=== PATIENT | male | born 1945 | race Caucasian/White ===

== ENCOUNTER 2016-05-18 16:17 | Inpatient (IN) | payer MEDICARE, OTHER ==
[~2016-05-18] VITALS: Ht 175.3 cm; Wt 121.9 kg
[2016-05-18] VITALS (7 sets, daily range): BP systolic 77–122; BP diastolic 42–56; PULSE 61–82; RESP 18–24; TEMP 98.9–99.2; O2SAT 91–96
[~2016-05-18 16:17] MED LIST: ADVAI100I PO; ALBU6.7H INH; ALFU10TA2 PO; ASPI1TAB7 PO; COZA50TA PO; DICL1GEL; DIPH50TA PO; FAMO20 PO; FIBE625T10 PO; FURO10S PO; GABA600T PO; MEDR4PAK3 PO; METO25 PO; MULT1TAB PO; NORC7.5T PO; PANT20 PO; SIMV20 PO; STOO240C PO; ZOLP10TA3 PO
[2016-05-18] MEDS ORDERED: SODIUM CHLOR 0.9% 1000 ML INJ 1,000 ML IV ONE ×2 (17:45→18:45)
[2016-05-18 17:47] LABS: AUTOMATED NEUTROPHIL # 14.6 TH/MM3 (1.8-7.7); BASOPHIL # 0.1 TH/MM3 (0-0.2); BASOPHIL % 0.4 % (0.0-2.0); LYMPH % 3.6 % (9.0-44.0); LYMPHOCYTE # 0.6 TH/MM3 (1.0-4.8); MEAN CELL VOLUME 88.1 FL (80.0-100.0); MEAN CORPUSCULAR HEMOGLOBIN 29.8 PG (27.0-34.0); MEAN CORPUSCULAR HGB CONC 33.9 % (32.0-36.0); MONO % 6.8 % (0.0-8.0); NEUT % 89.2 % (16.0-70.0); PLATELET COUNT 232 TH/MM3 (150-450); RED BLOOD COUNT 3.97 MIL/MM3 (4.50-5.90); RED CELL DISTRIBUTION WIDTH 15.8 % (11.6-17.2); WHITE BLOOD COUNT 16.3 TH/MM3 (4.0-11.0)
[2016-05-18 17:48] LABS: HEMO FLAGS AUTO DIFF
--- NOTE | 2016-05-18 17:53 | PD ---
HPI Chief Complaint: Chest Pain Time Seen by Provider: 17:35 Travel History International Travel<30 days: No Contact w/Intl Traveler<30days: No Traveled to known affect area: No History of Present Illness HPI This patient complains of lightheadedness and chills. He is not sure if he had fever. He had generalized weakness. He did have some brief spells of chest pain earlier that resolved. They were fairly atypical and only lasted a few seconds and resolved. He does have history of aortic valve replacement from rheumatic fever and bypass grafting. He is currently chest pain-free. He arrives looking critically ill with a systolic blood pressure of 77. Symptoms. Are severe. Duration one day. No alleviating factors. Medications today but did not take any sublingual nitroglycerin. No syncope. PFSH Past Medical History Hx Anticoagulant Therapy: Yes (ASA) Cardiac Catheterization: Yes Cardiovascular Problems: Yes (DOUBLE BYPASS) High Cholesterol: Yes Congestive Heart Failure: Yes COPD: Yes Coronary Artery Disease: Yes Diabetes: Yes Patient Takes Glucophage: No Diminished Hearing: Yes ([employer] [place] [employer] [place]) Gastrointestinal Disorders: Yes (CONSTIPATION ) GERD: Yes Hypertension: Yes Sleep Apnea: Yes (CPAP) Tetanus Vaccination: Unknown Influenza Vaccination: Yes Past Surgical History Cardiac Surgery: Yes (valve replacement) Coronary Artery Bypass Graft: Yes (double bypass 2011 ) Social History Alcohol Use: No Tobacco Use: No (QUIT 2011 ) Substance Use: No Allergies-Medications (Allergen,Severity, Reaction): Coded Allergies: Lisinopril (Verified Allergy, Unknown, 05/18/16) angioedema Reported Meds & Prescriptions Reported Meds & Active Scripts Active Reported Colace (Docusate Sodium) 100 Mg Cap 100 Mg PO HS Fiber (Calcium Polycarbophil) 625 Mg Tab 625 Mg PO HS PRN [place] ([place]) 450 Mg Cap 450 Mg PO DAILY [Immune Extra] 1 Tab PO DAILY Cranberry (Cranberry (Vaccinium Macrocarpon)) 500 Mg Cap 500 Mg PO DAILY B Complex (B-Complex W/ Folic Acid) 1 Tab 1 Tab PO DAILY Vitamin D3 (Cholecalciferol) 5,000 Unit Cap 5,000 Units PO DAILY Centrum Silver Adult 50+ (Multiple Vitamins W/ Minerals) 1 Tab Tab 1 Tab PO DAILY Aspirin EC (Aspirin) 81 Mg Tabdr 81 Mg PO HS Gabapentin 600 Mg Tab 600 Mg PO TID Ambien (Zolpidem Tartrate) 10 Mg Tab 10 Mg PO HS Amlodipine (Amlodipine Besylate) 5 Mg Tab 5 Mg PO DAILY Furosemide 20 Mg Tab 20 Mg PO DAILY Pantoprazole (Pantoprazole Sodium) 20 Mg Tab 20 Mg PO DAILY Metoprolol Tartrate 25 Mg Tab 25 Mg PO BID Alfuzosin ER 24 HR 10 Mg Tab 10 Mg PO DAILY Losartan (Losartan Potassium) 50 Mg Tab 50 Mg PO DAILY Advair Diskus Inh (Fluticasone-Salmeterol Inh) 100-50 Mcg/Blist Aer 1 Puff INH BID Rinse mouth after use. Atorvastatin (Atorvastatin Calcium) 40 Mg Tab 40 Mg PO HS Review of Systems General / Constitutional: Positive: Fever, Chills Eyes: No: Visual changes HENT: Positive: Lightheadedness, No: Headaches Cardiovascular: Positive: Chest Pain or Discomfort Respiratory: No: Shortness of Breath Gastrointestinal: No: Abdominal Pain Genitourinary: No: Dysuria Musculoskeletal: Positive: Weakness, No: Pain Skin: No Rash Neurologic: Positive: Weakness, Dizziness Psychiatric: No: Depression Endocrine: No: Polydipsia Hematologic/Lymphatic: No: Easy Bruising Physical Exam Narrative GENERAL: Well-nourished, well-developed patient with hypotension and presyncopal symptoms. SKIN: Warm and dry. HEAD: Atraumatic. Normocephalic. EYES: Pupils equal and round. No scleral icterus. No injection or drainage. ENT: No nasal bleeding or discharge. Mucous membranes pink and moist. NECK: Trachea midline. No JVD. CARDIOVASCULAR: Regular rate and rhythm. No murmur appreciated. RESPIRATORY: No accessory muscle use. Clear to auscultation. Breath sounds equal bilaterally. GASTROINTESTINAL: Abdomen soft, non-tender, nondistended. Hepatic and splenic margins not palpable. MUSCULOSKELETAL: No obvious deformities. No clubbing. No cyanosis. No edema. NEUROLOGICAL: Awake and alert. No obvious cranial nerve deficits. Motor grossly within normal limits. Normal speech. PSYCHIATRIC: Appropriate mood and affect; insight and judgment normal. Data Data Last Documented VS Vital Signs Date Time Temp Pulse Resp B/P Pulse Ox O2 Delivery O2 Flow Rate FiO2 05/18/16 18:39 67 18 108/47 93 Nasal Cannula 3 05/18/16 17:12 99.2 Orders Electrocardiogram (05/18/16 16:28) Complete Blood Count With Diff (05/18/16 16:28) Basic Metabolic Panel (Bmp) (05/18/16 16:28) Ckmb (Isoenzyme) Profile (05/18/16 16:28) Troponin I (05/18/16 16:28) Electrocardiogram (05/18/16 ) Sodium Chlor 0.9% 1000 Ml Inj (Ns 1000 M (05/18/16 17:45) Chest, Single Ap (05/18/16 ) Blood Culture (05/18/16 17:35) Lactic Acid (05/18/16 17:35) Iv Access Insert/Monitor (05/18/16 17:36) Iv Access Insert/Monitor (05/18/16 17:36) CKMB (05/18/16 17:25) CKMB% (05/18/16 17:25) Sodium Chlor 0.9% 1000 Ml Inj (Ns 1000 M (05/18/16 18:45) Labs Laboratory Tests Test 05/18/16 17:25 White Blood Count 16.3 TH/MM3 Red Blood Count 3.97 MIL/MM3 Hemoglobin 11.8 GM/DL Hematocrit 35.0 % Mean Corpuscular Volume 88.1 FL Mean Corpuscular Hemoglobin 29.8 PG Mean Corpuscular Hemoglobin 33.9 % Concent Red Cell Distribution Width 15.8 % Platelet Count 232 TH/MM3 Mean Platelet Volume 9.2 FL Neutrophils (%) (Auto) 89.2 % Lymphocytes (%) (Auto) 3.6 % Monocytes (%) (Auto) 6.8 % Eosinophils (%) (Auto) 0.0 % Basophils (%) (Auto) 0.4 % Neutrophils # (Auto) 14.6 TH/MM3 Lymphocytes # (Auto) 0.6 TH/MM3 Monocytes # (Auto) 1.1 TH/MM3 Eosinophils # (Auto) 0.0 TH/MM3 Basophils # (Auto) 0.1 TH/MM3 CBC Comment AUTO DIFF Differential Comment AUTO DIFF CONFIRMED Sodium Level 139 MEQ/L Potassium Level 5.5 MEQ/L Chloride Level 103 MEQ/L Carbon Dioxide Level 28.7 MEQ/L Anion Gap 7 MEQ/L Blood Urea Nitrogen 24 MG/DL Creatinine 1.96 MG/DL Estimat Glomerular Filtration 34 ML/MIN Rate Random Glucose 109 MG/DL Lactic Acid Level 2.0 mmol/L Calcium Level 8.9 MG/DL Total Creatine Kinase 175 U/L Creatine Kinase MB 0.8 NG/ML Troponin I 0.04 NG/ML MDM Medical Decision Making Medical Screen Exam Complete: Yes Emergency Medical Condition: Yes Medical Record Reviewed: Yes Differential Diagnosis Septic shock, overmedication, dehydration Narrative Course I have reviewed the patient's electronic medical record. 2 IVs placed I gave him 2L IV normal saline bolus 2 sets of blood cultures obtained CBC shows some leukocytosis Metabolic profile shows renal sufficient creatinine 1.96, potassium 5.5 CK is normal Troponin is normal I reviewed his chest x-ray which shows bilateral airspace disease but no effusion or pneumothorax Reviewed his EKG which shows sinus rhythm with no ST elevation. There is no ectopy. He does have some T-wave inversion in lateral leads Extended cardiac monitoring reveals sinus rhythm without ectopy On recheck the patient was clinically improved. He no longer appears critically ill. He will require hospitalization on telemetry given his presentation as well as his chest pain with known CAD/bypass grafting Case discussed with the [facility] hospitalist who will admit Critical Care Narrative Aggregate critical care time was 40 minutes. Time to perform other separately billable procedures was not included in the critical care time. My time did not include minutes spent treating any other patients simultaneously or on activities that did not directly contribute to the patient's treatment. The services I provided to this patient were to treat and/or prevent clinically significant deterioration that could result in: Septic shock, cardiopulmonary arrest, cardiac arrhythmia I provided critical care services requiring my management, as noted below: Chart data review, documentation time, medication orders and management, vital sign assessments/reviewing monitor data, ordering and reviewing lab tests, ordering and interpreting/reviewing x-rays and diagnostic studies, care of the patient and discussion of the patient with the admitting physicians. Diagnosis Primary Impression: Hypotension Qualified Code: I95.9 - Hypotension, unspecified hypotension type Additional Impressions: Chest pain in adult Pre-syncope Admitting Information Admitting Physician Requests: it Jay Jay Valerio MD May 18, 2016 17:53
[2016-05-18] MEDS ORDERED: ALFU10TA2 PO (18:06)
[2016-05-18] MEDS ORDERED: AMBI10TA PO (18:06)
[2016-05-18] MEDS ORDERED: B COTAB3 PO (18:06)
[2016-05-18] MEDS ORDERED: ASPI81TA11 PO (18:06)
[2016-05-18] MEDS ORDERED: ADVA100A INH (18:06)
[2016-05-18] MEDS ORDERED: SAW450CA2 PO (18:06)
[2016-05-18] MEDS ORDERED: PANT20TA2 PO (18:06)
[2016-05-18] MEDS ORDERED: AMLO5TAB2 PO (18:06)
[2016-05-18] MEDS ORDERED: [UNRECOGNIZED DRUG - OTHER] PO (18:06)
[2016-05-18] MEDS ORDERED: MULT1TAB PO (18:06)
[2016-05-18] MEDS ORDERED: ATOR40TA16 PO (18:06)
[2016-05-18] MEDS ORDERED: LOSA50TA PO (18:06)
[2016-05-18] MEDS ORDERED: CRAN500C2 PO (18:06)
[2016-05-18] MEDS ORDERED: CHOL5000 PO (18:06)
[2016-05-18] MEDS ORDERED: GABA600T PO (18:06)
[2016-05-18] MEDS ORDERED: METO25TA3 PO (18:06)
[2016-05-18] MEDS ORDERED: FURO20TA PO (18:06)
[2016-05-18 18:18] LABS: ANION GAP 7 MEQ/L (5-15); BICARBONATE 28.7 MEQ/L (21.0-32.0); BLOOD UREA NITROGEN 24 MG/DL (7-18); CHLORIDE 103 MEQ/L (98-107); CREATINE KINASE 175 U/L (39-308); GLOMERULAR FILTRATION RATE 34 ML/MIN (>89); POTASSIUM 5.5 MEQ/L (3.5-5.1); SODIUM (NA) 139 MEQ/L (136-145)
[2016-05-18 18:24] LABS: SCAN/DIFF AUTO DIFF CONFIRMED
[2016-05-18 18:30] LABS: CKMB 0.8 NG/ML (0.5-3.6)
[2016-05-18] MEDS ORDERED: COLA100C3 PO (18:30)
[2016-05-18] MEDS ORDERED: FIBE625T10 PO (18:30)
--- NOTE | 2016-05-18 18:55 | RADRPT ---
EXAM DATE/TIME: 05/18/2016 18:07 [facility] COMPARISON: No previous studies available for comparison. INDICATIONS : Chest pain. MEDICAL HISTORY : Cardiovascular disease. SURGICAL HISTORY : valve replacement with double bypass 2011 ENCOUNTER: Initial ACUITY: 3 days PAIN SCORE: 7/10 LOCATION: Bilateral upper chest FINDINGS: Heart size is enlarged. Postoperative median sternotomy. Hazy airspace disease present in the left nicolas ng with minimal right basilar opacity as well. No significant effusion. No pneumothorax. CONCLUSION: 1. Cardiomegaly with hazy left-sided air space disease in the lung. Differential diagnosis includes b ronchopneumonia or asymmetric edema. Getachew Perez MD on May 18, 2016 at 18:52 Board Certified Radiologist. This report was verified electronically.
[2016-05-18] MEDS ORDERED: SODIUM CHLORIDE 0.9% FLUSH 5 ML FLUSH FLUSH PRN (20:30)
[2016-05-18] MEDS ORDERED: NALOXONE HCL 0.4 MG/ML AMP IV PRN (20:30)
[2016-05-18] MEDS ORDERED: CALCIUM POLYCARBOPHIL 625 MG TAB PO PRN (20:45)
[2016-05-18] MEDS: SODIUM CHLORIDE 0.9% FLUSH 5 ML FLUSH FLUSH SCH (21:00)
[2016-05-18] MEDS: METOPROLOL TARTRATE 25 MG TAB PO SCH (21:00)
[2016-05-18] MEDS: SODIUM CHLOR 0.9% 1000 ML INJ 1,000 ML IV SCH ×2 (21:15→22:57)
[2016-05-18] MEDS: ASPIRIN EC 81 MG TABEC PO SCH (21:16)
[2016-05-18] MEDS: DOCUSATE SODIUM 100 MG CAP PO SCH (21:16)
[2016-05-18] MEDS: ATORVASTATIN 40 MG TAB PO SCH (21:16)
[2016-05-18] MEDS: AZITHROMYCIN INJ 500 MG in SODIUM CHLOR 0.9% 250 ML INJ 250 ML IV SCH ×2 (21:29→22:58)
[2016-05-18] MEDS: HEPARIN SODIUM - SQ 10,000 UNITS/ML VIAL SQ SCH (21:46)
[2016-05-18] MEDS: BUDESONIDE-FORMOTEROL 80/4.5 MCG INHALER INH SCH (22:00)
[2016-05-18] MEDS: cefTRIAXone INJ 1,000 MG in SODIUM CHLORIDE 0.9% INJ 100 ML IV SCH (22:57)
[2016-05-19] VITALS (10 sets, daily range): BP systolic 88–162; BP diastolic 50–72; PULSE 72–86; RESP 18–20; TEMP 96.8–99.9; O2SAT 92–98
[2016-05-19] MEDS: ZOLPIDEM TARTRATE 10 MG TAB PO SCH ×2 (01:13→22:49)
[2016-05-19 03:11] LABS: AUTOMATED NEUTROPHIL # 16.9 TH/MM3 (1.8-7.7); BASOPHIL % 0.2 % (0.0-2.0); EOSINOPHIL % 0.2 % (0.0-4.0); HEMATOCRIT 32.9 % (39.0-51.0); HEMO FLAGS DIFF FINAL; LYMPH % 6.8 % (9.0-44.0); LYMPHOCYTE # 1.3 TH/MM3 (1.0-4.8); MEAN CELL VOLUME 89.9 FL (80.0-100.0); MEAN CORPUSCULAR HEMOGLOBIN 29.1 PG (27.0-34.0); MEAN CORPUSCULAR HGB CONC 32.4 % (32.0-36.0); MONO % 7.3 % (0.0-8.0); NEUT % 85.5 % (16.0-70.0); PLATELET COUNT 184 TH/MM3 (150-450); RED BLOOD COUNT 3.66 MIL/MM3 (4.50-5.90); RED CELL DISTRIBUTION WIDTH 15.6 % (11.6-17.2); WHITE BLOOD COUNT 19.8 TH/MM3 (4.0-11.0)
[2016-05-19 03:38] LABS: BICARBONATE 27.9 MEQ/L (21.0-32.0)
[2016-05-19 03:39] LABS: POTASSIUM 4.8 MEQ/L (3.5-5.1)
[2016-05-19 03:57] LABS: CKMB 1.4 NG/ML (0.5-3.6)
[2016-05-19] MEDS ORDERED: SODIUM CHLOR 0.9% 1000 ML INJ 1,000 ML IV ONE (04:45)
--- NOTE | 2016-05-19 07:32 | MB ---
cc: JORDEN GRANT M.D. DATE OF CONSULTATION: 05/19/2016 REASON FOR CONSULTATION Chest pain and hypotension. HISTORY OF PRESENT ILLNESS Mr. Gudion is a 70-year-old white gentleman well-known to me with a history of coronary artery disease, aortic valve disease, status post coronary artery bypass grafting x2 vessels with aortic valve replacement with a #21 [facility] bioprosthesis on August 03, 2011. He has been doing well from a cardiac standpoint. He has had no recent chest discomfort. I saw him about a week ago and he was concerned about weight gain and we discussed his diabetes. His blood pressure was on the low side systolic around 98 as I recall and I had reduced his amlodipine from 5 to 2.5 mg a day. Since then he was doing okay until yesterday. He said he woke from sleep yesterday morning and felt chills and generally ill-feeling. He has been taking his medication as directed. He came to the emergency room and was found to be hypotensive with a blood pressure in the high 70s. He was given intravenous fluid resuscitation and did well and recovered quickly. His white count is elevated and he has had some infiltrates on his x-ray and he is now on antibiotics and awaiting blood culture results. He did complain of some left-sided intermittent chest discomfort which has resolved. His cardiac enzymes thus far are unremarkable. PAST MEDICAL HISTORY 1. Hypertension. 2. Hypercholesterolemia. 3. Rheumatic fever. 4. Heart murmur. 5. Frequent snoring. 6. Diabetes mellitus. Denies history of myocardial infarction, heart failure, stroke, TIA, thyroid, liver or kidney disease. PAST SURGICAL HISTORY 1. CABG x2 vessels with AVR, [facility] 21 bioprosthesis, July 2011. 2. Cataract left eye 2012. ALLERGIES LISINOPRIL CAUSED ANGIOEDEMA. MEDICATIONS Medications prior to admission: 1. Amlodipine 2.5 mg daily. 2. Atorvastatin 40 mg daily. 3. Metoprolol tartrate 25 mg b.i.d. 4. Cozaar 50 mg daily. 5. Aspirin 81 mg daily. 6. Furosemide 20 mg daily. 7. Famotidine 20 mg b.i.d. FAMILY HISTORY Mother age 80 with stomach cancer. Father around age 80 with peptic ulcers. A brother is from heart disease age 56, and one is alive and well in his 70s. SOCIAL HISTORY The patient denies tobacco use at this time. He was a cigarette smoker, smoked 2-3 packs a day for 45 years, quit in July 2011. Denies any alcohol intake or any illicit drug use. He lives alone and is REVIEW OF SYSTEMS Denies any palpitations, lightheadedness or syncope. He has had some chills and night sweats over the past 24 hours. He denies any exertional chest discomfort. Denies any shortness of breath, orthopnea or PND type symptoms. Denies lower extremity edema. Denies nausea, vomiting or diarrhea. Denies bleeding or clotting disorders. Except for that mentioned in the HPI his complete 12-point review of systems is otherwise negative. PHYSICAL EXAMINATION GENERAL: A 70-year-old obese white male lying in bed in no distress. VITAL SIGNS: Blood pressure 134/61 mmHg in his left upper extremity, 90/65 in his right upper extremity. We had noted this differential blood pressure in his left and right arm in the office last week as well. HEENT: Pupils are equal, round and react to light. Sclera anicteric. Extraocular movements intact. NECK: The neck is supple. There is no adenopathy. No jugular venous tension at 45 degrees. Carotid upstrokes normal. No bruits. Thyroid exam normal. LUNGS: The lungs are clear. HEART: PMI is not displaced. S1, S2 normal. There is a grade 1/6 systolic murmur at the left sternal border and base. No diastolic murmur, gallops or rubs. ABDOMEN: Obese. Bowel sounds present. Soft, nontender. No hepatosplenomegaly, masses or bruits. EXTREMITIES: No cyanosis, clubbing or edema. Pulses are intact. Perfusion is adequate in the upper and lower extremities. EKG EKG from yesterday evening shows a sinus rhythm with lateral T-wave abnormalities, abnormal EKG. Compared to EKG from my office there is no change. TELEMETRY Telemetry monitoring at this time shows sinus rhythm. IMAGING Chest x-ray from yesterday: Cardiomegaly with hazy left-sided airspace disease in the lung. LABORATORY CBC: White count 19.8 this morning with a hemoglobin of 10.7, hematocrit 32.9, platelet count 184,000. There is 85.5% neutrophils. Chemistries: Sodium 141, potassium 4.8, chloride 107, CO2 27.9, BUN 28, creatinine 1.89 down from 1.96 on admission yesterday after intravenous fluids. CPK 359 with a CPK-MB% of 0.4 and a troponin-I of 0.05 on the third set this morning at 2:37. IMPRESSION 1. Atypical chest pain, suspect non-cardiac etiology. 2. Hypotension and concerns for possible sepsis. 3. Leukocytosis. 4. ASHD status post CABG and aortic valve replacement 2011. 5. Hypertension. 6. Differential blood pressure readings left and right upper extremity, rule out possible right brachiocephalic or subclavian stenosis. RECOMMENDATIONS The patient has been hydrated with intravenous fluids which is continuing at this point and he has been cultured and started on antibiotics. I will obtain an echocardiogram to reevaluate his aortic valve bioprosthesis and rule out a small chance of endocarditis. He has no other evidence that points to that. Continue supportive measures and await culture results. No further cardiac workup needed at this time. He has no evidence of ongoing ischemia or recent infarct. I will follow him with you. Thank you for allowing me to participate in the care of this patient. MD WARREN Melendez/LIYA /7:04 AM /7:18 AM
[2016-05-19] MEDS ORDERED: amLODIPine BESYLATE 5 MG TAB PO SCH (09:00)
[2016-05-19] MEDS ORDERED: [UNRECOGNIZED DRUG - OTHER] PO SCH (09:00)
[2016-05-19] MEDS ORDERED: FOLIC ACID PO SCH (09:00)
[2016-05-19] MEDS ORDERED: TAMSULOSIN HCL 0.4 MG CAP PO SCH (09:00)
[2016-05-19] MEDS ORDERED: GABAPENTIN 300 MG CAP PO SCH (09:00)
[2016-05-19] MEDS ORDERED: B COMPLEX PO SCH (09:00)
[2016-05-19] MEDS ORDERED: NON-FORMULARY DRUG (Saw Palmetto (Serenoa Repens) 450 MG) PO SCH (09:00)
[2016-05-19] MEDS ORDERED: NON-FORMULARY DRUG (Cranberry (Vaccinium Macrocarpon) (Cranberry) 500 MG) PO SCH (09:00)
[2016-05-19] MEDS ORDERED: FUROSEMIDE 20 MG TAB PO SCH (09:00)
[2016-05-19] MEDS: BUDESONIDE-FORMOTEROL 80/4.5 MCG INHALER INH SCH ×2 (09:30→22:48)
[2016-05-19] MEDS: CHOLECALCIFEROL (VIT D3) 5000 UNIT CAP PO SCH (09:30)
[2016-05-19] MEDS: PANTOPRAZOLE SOD 20 MG DELAYED RELEASE TAB PO SCH (09:30)
[2016-05-19] MEDS: METOPROLOL TARTRATE 25 MG TAB PO SCH ×2 (09:31→22:50)
[2016-05-19] MEDS: HEPARIN SODIUM - SQ 10,000 UNITS/ML VIAL SQ SCH ×2 (09:31→22:50)
[2016-05-19] MEDS: MULTIVITAMIN HEMATINIC THERAPEUTIC TAB PO SCH (09:31)
[2016-05-19] MEDS: SODIUM CHLORIDE 0.9% FLUSH 5 ML FLUSH FLUSH SCH ×2 (09:32→21:00)
--- NOTE | 2016-05-19 10:47 | HHI.HP ---
[facility] Stacie Rollins M.D. Admission Diagnosis hypotension,chest pain,presyncope Diagnoses: Chief Complaint: weak, chills, mucus, sob (Fern Nava) Travel History International Travel<30 Days: No Contact w/Intl Traveler <30 Da: No Traveled to Known Affected Are: No (Fern Nava) History of Present Illness This is a pleasant 70-year-old male with history of coronary artery disease, aortic valve disease, status post CABG 2 with aortic valve replacement in 2012 , sleep apnea, hypertension. Patient presented to the emergency room with complaint of lightheadedness and chills. Patient indicates that he woke up feeling very weak, he had increased chills and was shivering, he's not sure if he had fever. States that he did have pain over his left breast, nonradiating associated with some shortness of breath. It did not last very long, it went away on its own. He has noted some orthopnea. He's had a cough, with some blood-tinged sputum. He denies any recent sick contacts. Patient was evaluated in the emergency room, he was noted critically ill, was hypotensive blood pressure 77/45, heart rate 72, temperature 99.2, sats were 96% on 2 L. Patient had 2 L of IV fluid given, blood cultures were obtained. CBC was remarkable for leukocytosis, WBC 16.3. Lactic acid was 2. He was noted with acute renal injury, patient does have some underlying kidney disease. He was noted hypokalemic with potassium 5.5. Troponin was 0.04. Patient was given IV antibiotics. EKG was reviewed, it was sinus rhythm no ST segment elevation. He did have some T-wave inversion lateral leads. Chest x-ray showed cardiomegaly with lacy left-sided airspace disease in the lung, differential diagnosis include bronchopneumonia or asymmetric edema. After IV fluids, patient did appear clinically improved. Patient is sitting at bedside, he appears pale, he's not having any shortness of breath at this time. He has been evaluated by Dr. Lynn who has requested an echocardiogram as well as a urinalysis. Patient is admitted for further evaluation and treatment. (Fern Nava) Review of Systems ROS Limitations: Poor Historian Constitutional: COMPLAINS OF: Diaphoretic episodes, Chills Respiratory: COMPLAINS OF: Cough, Sputum production, Shortness of breath Cardiovascular: COMPLAINS OF: Dyspnea on Exertion (Fern Nava) Past Family Social History Past Medical History 1. Hypertension. 2. Hypercholesterolemia. 3. Rheumatic fever. 4. Heart murmur. 5. Frequent snoring. 6. Diabetes mellitus. 7. Neuropathy 8. Sleep apnea uses CPAP 9. COPD 10. Hard of hearing Past Surgical History 1. CABG x2 vessels with AVR, [facility] 21 bioprosthesis, July 2011. 2. Cataract left eye 2012. Reported Medications Reported Meds & Active Scripts Active Reported Colace (Docusate Sodium) 100 Mg Cap 100 Mg PO HS Fiber (Calcium Polycarbophil) 625 Mg Tab 625 Mg PO HS PRN [place] ([place]) 450 Mg Cap 450 Mg PO DAILY [Immune Extra] 1 Tab PO DAILY Cranberry (Cranberry (Vaccinium Macrocarpon)) 500 Mg Cap 500 Mg PO DAILY B Complex (B-Complex W/ Folic Acid) 1 Tab 1 Tab PO DAILY Vitamin D3 (Cholecalciferol) 5,000 Unit Cap 5,000 Units PO DAILY Centrum Silver Adult 50+ (Multiple Vitamins W/ Minerals) 1 Tab Tab 1 Tab PO DAILY Aspirin EC (Aspirin) 81 Mg Tabdr 81 Mg PO HS Gabapentin 600 Mg Tab 600 Mg PO TID Ambien (Zolpidem Tartrate) 10 Mg Tab 10 Mg PO HS Amlodipine (Amlodipine Besylate) 5 Mg Tab 5 Mg PO DAILY Furosemide 20 Mg Tab 20 Mg PO DAILY Pantoprazole (Pantoprazole Sodium) 20 Mg Tab 20 Mg PO DAILY Metoprolol Tartrate 25 Mg Tab 25 Mg PO BID Alfuzosin ER 24 HR 10 Mg Tab 10 Mg PO DAILY Losartan (Losartan Potassium) 50 Mg Tab 50 Mg PO DAILY Advair Diskus Inh (Fluticasone-Salmeterol Inh) 100-50 Mcg/Blist Aer 1 Puff INH BID Rinse mouth after use. Atorvastatin (Atorvastatin Calcium) 40 Mg Tab 40 Mg PO HS (Fern Nava) Allergies: Coded Allergies: Lisinopril (Verified Allergy, Unknown, 05/18/16) angioedema Active Ordered Medications Inpatient Medications Amlodipine Besylate (Norvasc) 5 mg DAILY PO ; Start 05/19/16 at 09:00; Stop at 09:00; Status DC Aspirin (Ecotrin Ec) 81 mg HS PO Last administered on 05/18/16 21:16; Start 05/18/16 at 21:00 Atorvastatin Calcium (Lipitor) 40 mg HS PO Last administered on 05/18/16 21:16 ; Start 05/18/16 at 21:00 Azithromycin/ Sodium Chloride (Zithromax Inj/ NS 250 ml Inj) 250 ml @ 250 mls/ hr Q24H IV Last administered on 05/18/16 21:29; Start 05/18/16 at 22:00 Budesonide/ Formoterol Fumarate 2 puff 2 puff BID INH Last administered on 09:30; Start 05/18/16 at 22:00 Calcium Polycarbophil (Fiber Con) 625 mg HS PRN PO CONSTIPATION; Start 05/18/16 at 20:45 Ceftriaxone Sodium 1000 mg/ Sodium Chloride 100 ml @ 200 mls/hr Q24H IV Last administered on 05/18/16 22:57; Start 05/18/16 at 22:00 Cholecalciferol (Vitamin D3) 5,000 units DAILY PO Last administered on 09:30; Start 05/19/16 at 09:00 Docusate Sodium (Colace) 100 mg HS PO Last administered on 05/18/16 21:16; Start 05/18/16 at 21:00 Furosemide (Lasix) 20 mg DAILY PO ; Start 05/19/16 at 09:00; Stop 05/19/16 at 09: 00; Status DC Gabapentin (Neurontin) 200 mg TID PO ; Start 05/19/16 at 13:00 Heparin Sodium (Porcine) (Heparin Inj) 5,000 units Q12H SQ Last administered on 05/19/16 09:31; Start 05/18/16 at 22:00 IV Flush (NS Flush) 2 ml BID FLUSH Last administered on 05/19/16 09:32; Start 05/18/16 at 21:00 Metoprolol Tartrate (Lopressor) 25 mg BID PO Last administered on 05/19/16 09: 31; Start 05/18/16 at 21:00 Multivitamin Hematinic Therapeutic (Theragran Hematinic) 1 tab DAILY PO Last administered on 05/19/16 09:31; Start 05/19/16 at 09:00 Naloxone HCl 0.4 mg 0.4 mg UNSCH PRN IV SEE LABEL COMMENTS; Start 05/18/16 at 20 :30 Pantoprazole Sodium (Protonix) 20 mg DAILY PO Last administered on 05/19/16 09: 30; Start 05/19/16 at 09:00 Sodium Chloride (NS 1000 ml Inj) 1,000 ml @ 0 mls/hr BOLUS ONCE IV Last administered on 05/19/16 04:45; Start 05/19/16 at 04:45; Stop 05/19/16 at 04:46; Status DC Tamsulosin HCl (Flomax) 0.4 mg DAILY PO ; Start 05/19/16 at 09:00; Stop 05/19/16 at 09:00; Status DC Zolpidem Tartrate (Ambien) 10 mg HS PO Last administered on 05/19/16 01:13; Start 05/18/16 at 21:00 Family History Mother age 80 with stomach cancer. Father around age 80 with peptic ulcers. A brother is from heart disease age 56, and one is alive and well in his 70s. SOCIAL HISTORY The patient denies tobacco use at this time. He was a cigarette smoker, smoked 2-3 packs a day for 45 years, quit in July 2011. Denies any alcohol intake or any illicit drug use. He lives alone and is Social History The patient denies tobacco use at this time. He was a cigarette smoker, smoked 2-3 packs a day for 45 years, quit in July 2011. Denies any alcohol intake or any illicit drug use. He lives alone and is (Fern Nava) Physical Exam Vital Signs Vital Signs Date Time Temp Pulse Resp B/P Pulse Ox O2 Delivery O2 Flow Rate FiO2 05/19/16 08:00 98.6 74 18 101/59 96 05/19/16 06:12 134/61 90/65 05/19/16 04:00 88/54 05/19/16 04:00 99.9 80 18 94/50 96 05/19/16 04:00 99.9 80 18 99/51 96 05/18/16 23:00 72 24 110/51 95 05/18/16 23:00 99.2 77 18 106/42 93 05/18/16 21:00 65 18 101/52 96 Nasal Cannula 2 05/18/16 19:00 98.9 61 19 105/53 95 Nasal Cannula 2 05/18/16 19:00 61 19 95 Nasal Cannula 2 05/18/16 18:39 67 18 108/47 93 Nasal Cannula 3 05/18/16 17:54 82 24 113/53 93 Nasal Cannula 3.0 05/18/16 17:31 73 20 122/56 91 Nasal Cannula 2 05/18/16 17:12 99.2 72 20 77/45 93 Nasal Cannula 2 05/18/16 17:12 72 22 96 Nasal Cannula 2 Physical Exam GENERAL: This is a well-nourished, obese male, ill-appearing SKIN: Skin pale, diaphoretic HEAD: Atraumatic. Normocephalic. No temporal or scalp tenderness. EYES: Pupils equal round and reactive. Extraocular motions intact. No scleral icterus. No injection or drainage. ENT: Nose without bleeding, purulent drainage or septal hematoma. Throat without erythema, tonsillar hypertrophy or exudate. Uvula midline. Airway patent. NECK: Trachea midline. No JVD or lymphadenopathy. Supple, nontender, no meningeal signs. CARDIOVASCULAR: Regular rate and rhythm soft murmur. No gallops, or rubs. RESPIRATORY: Diminished, faint Rales GASTROINTESTINAL: Abdomen soft, non-tender, nondistended. No hepato-splenomegaly , or palpable masses. No guarding. MUSCULOSKELETAL: Extremities without clubbing, cyanosis. Both lower extremities with trace ankle edema, pedal pulses 2+. No joint tenderness, effusion, or edema noted. No calf tenderness. Negative Homans sign bilaterally. NEUROLOGICAL: Awake, alert oriented 3, hard of hearing. Following commands. Poor historian Laboratory Laboratory Tests Test 05/18/16 05/19/16 05/19/16 17:25 01:34 02:37 White Blood Count 16.3 19.8 Red Blood Count 3.97 3.66 Hemoglobin 11.8 10.7 Hematocrit 35.0 32.9 Mean Corpuscular Volume 88.1 89.9 Mean Corpuscular Hemoglobin 29.8 29.1 Mean Corpuscular Hemoglobin 33.9 32.4 Concent Red Cell Distribution Width 15.8 15.6 Platelet Count 232 184 Mean Platelet Volume 9.2 9.3 Neutrophils (%) (Auto) 89.2 85.5 Lymphocytes (%) (Auto) 3.6 6.8 Monocytes (%) (Auto) 6.8 7.3 Eosinophils (%) (Auto) 0.0 0.2 Basophils (%) (Auto) 0.4 0.2 Neutrophils # (Auto) 14.6 16.9 Lymphocytes # (Auto) 0.6 1.3 Monocytes # (Auto) 1.1 1.4 Eosinophils # (Auto) 0.0 0.0 Basophils # (Auto) 0.1 0.0 CBC Comment AUTO DIFF DIFF FINAL Differential Comment AUTO DIFF CONFIRMED Sodium Level 139 141 Potassium Level 5.5 4.8 Chloride Level 103 107 Carbon Dioxide Level 28.7 27.9 Anion Gap 7 6 Blood Urea Nitrogen 24 28 Creatinine 1.96 1.89 Estimat Glomerular Filtration 34 36 Rate Random Glucose 109 84 Lactic Acid Level 2.0 Calcium Level 8.9 8.2 Total Creatine Kinase 175 292 359 Creatine Kinase MB 0.8 1.4 Troponin I 0.04 0.06 0.05 Creatine Kinase MB % 0.4 Date/Time Procedure Status Source Growth 05/18/16 17:25 Aerobic Blood Culture Received Blood Peripheral Pending 05/18/16 17:25 Anaerobic Blood Culture Received Blood Peripheral Pending (Fern Nava) Result Diagram: 05/19/16 0237 05/19/16 0237 Imaging Last Impressions Chest X-Ray 05/18/16 0000 Signed Impressions: Service Date/Time: Wednesday, May 18, 2016 18:07 - CONCLUSION: 1. Cardiomegaly with hazy left-sided air space disease in the lung. Differential diagnosis includes bronchopneumonia or asymmetric edema. Getachew Perez MD (Fern Nava) Assessment and Plan Problem List: (1) Leukocytosis (2) Hypotension (3) Pre-syncope (4) Chest pain in adult (5) Hx of aortic valve repair (6) Sleep apnea (7) Elevated troponin (8) Yvlbr-ip-uvffrbx kidney injury (9) COPD (chronic obstructive pulmonary disease) (10) Neuropathy (11) Diabetes mellitus type 2, diet-controlled Assessment and Plan Admit to Dr. Massey 70-year-old male with history of coronary artery disease, aortic valve replacement, hypertension, sleep apnea. Presented to emergency room with generalized weakness, shortness of breath, chest pain, increased cough with sputum. Evaluated in the emergency room, found hypotensive with leukocytosis, chest x-ray showing bilateral airspace disease, also elevated troponin. Hypertension, with leukocytosis, possible early sepsis, secondary to pulmonary process Continue with cautious hydration, decrease normal saline to 50/hr Continue to follow cultures Continue antibiotics Follow-up on UA UC results Elevated troponin, with chest pain and shortness of breath. Possible elevation of troponin secondary to sepsis but we will need to rule out acute coronary syndrome Cardiology has been consulted for evaluation, -Continue aspirin, beta blockers, statin -2-D echo has been ordered, will follow-up on results COPD, stable DuoNeb's as needed for wheezing Diet-controlled diabetes Accu-Cheks before meals and at bedtime with insulin therapy as needed Acute on chronic renal injury Continue with cautious hydration Avoid nephrotoxic agents Repeat BMP in the morning Status post CABG 2 with aortic valve replacement - 2-D echo has been ordered Sleep apnea, patient uses CPAP at home Requested that patient call relative or friend to bring equipment from home, if not able to do so, we will order CPAP for overnight use Heparin for DVT prophylaxis Protonix for GI prophylaxis Home medications reviewed, initiated as indicated Plan of care has been discussed with the patient, attending and registered nurse. Further management of the patient will be dependent on the hospital course This patient was seen by myself and Dr. Massey, this H&P is written on his behalf (Fern Nava) Assessment and Plan pt seen and examined in [facility] face to face time spent with pt chart reviwed including labs rad data and meds reviewed plan of care katerine garcias pt (Elizabeth Massey MD) Physician Certification 2 Midnight Certification Type: Admission for Inpatient Services Order for Inpatient Services The services are ordered in accordance with Medicare regulations or non- Medicare payer requirements, as applicable. In the case of services not specified as inpatient-only, they are appropriately provided as inpatient services in accordance with the 2-midnight benchmark. Estimated LOS (days): 2 days is the estimated time the patient will need to remain in the hospital, assuming treatment plan goals are met and no additional complications. Post-Hospital Plan: Home Health (Fern Nava) Problem Qualifiers (1) Leukocytosis: Qualified Code: D72.828 - Other elevated white blood cell (WBC) count (2) Hypotension: Qualified Code: I95.9 - Hypotension, unspecified hypotension type (3) Sleep apnea: Qualified Code: G47.30 - Sleep apnea, unspecified type (4) COPD (chronic obstructive pulmonary disease): Qualified Code: J44.9 - Chronic obstructive pulmonary disease, unspecified COPD type Fern Nava May 19, 2016 10:47 Elizabeth Massey MD May 19, 2016 21:42
[2016-05-19] MEDS ORDERED: GLUCAGON 1 MG/ML VIAL OTHER PRN (11:00)
[2016-05-19] MEDS: INSULIN ASPART SUPPLEMENTAL SCALE SQ SCH ×3 (11:00→21:00)
[2016-05-19] MEDS ORDERED: DEXTROSE 50% IN WATER 50 ML VIAL(D50) IV PUSH PRN (11:00)
[2016-05-19] MEDS: GABAPENTIN 100 MG CAP PO SCH ×2 (12:23→17:03)
[2016-05-19] MEDS: RESP: ALBUTEROL 2.5 MG/IPRATROPIUM 0.5 MG NEB (SCH) NEB ×2 (15:49→19:51)
--- NOTE | 2016-05-19 17:58 | EKG ---
Date Performed: 05/18/2016 Time Performed: 16:37:45 PTAGE: 70 years EKG: Sinus rhythm ST DEVIATION AND MODERATE T-WAVE ABNORMALITY, CONSIDER LATERAL ISCHEMIA ABNORMAL ECG NO PREVIOUS TRACING DOCTOR: Roberto Velazquez Interpretating Date/Time 05/19/2016 17:56:37
--- NOTE | 2016-05-19 17:58 | EKG ---
Date Performed: 05/18/2016 Time Performed: 17:09:06 PTAGE: 70 years EKG: Sinus rhythm ST DEVIATION AND MODERATE T-WAVE ABNORMALITY, CONSIDER LATERAL ISCHEMIA Since previous tracing, no s ignificant change noted ABNORMAL ECG PREVIOUS TRACING : 05/18/2016 16.37.45 DOCTOR: Roberto Velazquez Interpretating Date/Time 05/19/2016 17:57:14
--- NOTE | 2016-05-19 19:03 | EC ---
Study Study Date:05/19/2016 STUDY CONCLUSIONS SUMMARY - Left ventricle: The cavity size was normal. Systolic function was probably normal. The estimated ejection fraction was in the range of 55% to 60%. - Aortic valve: Poorly visualized. There appears to be a bioprosthesis present. There was mild to moderate stenosis. Mean gradient: 28mm Hg (S). - Mitral valve: Mildly to moderately calcified annulus. - Left atrium: The atrium was mildly dilated. - Right ventricle: The cavity size was mildly dilated. - Tricuspid valve: Mild regurgitation. - Pulmonary arteries: PA peak pressure: 59mm Hg (S). If LV function is below 40, please consider prescribing an ACEI or ARB or document rationale for non-use. PROCEDURE DATA STUDY STATUS: Elective. Procedure: Transthoracic echocardiography. Image quality was good. Scanning was performed from the parasternal, apical, and subcostal acoustic windows. Study completion: The patient tolerated the procedure well. Transthoracic echocardiography. M-mode, complete 2D, complete spectral Doppler, and color Doppler. Height: Height: 69in. Weight: Weight: 267.4lb. Body mass index: BMI: 39.6kg/m^2. Body surface area: BSA: 2.34m^2. Patient status: Inpatient. CARDIAC ANATOMY LEFT VENTRICLE: The cavity size was normal. Systolic function was probably normal. The estimated ejection fraction was in the range of 55% to 60%. Images were inadequate for LV wall motion assessment. AORTIC VALVE: Poorly visualized. There appears to be a bioprosthesis present. Doppler: There was mild to moderate stenosis. No significant regurgitation. Valve area: 0.85cm^2(VTI). Indexed valve area: 0.36cm^2/m^2 (VTI). Valve area: 2.29cm^2 (Vmax). Indexed valve area: 0.98cm^2/m^2 (Vmax). Mean gradient: 28mm Hg (S). Peak gradient: 48mm Hg (S). MITRAL VALVE: Mildly to moderately calcified annulus. Doppler: There was no evidence for stenosis. Trace to mild regurgitation. Peak gradient: 9mm Hg (D). LEFT ATRIUM: The atrium was mildly dilated. RIGHT VENTRICLE: The cavity size was mildly dilated. PULMONIC VALVE: Not well visualized. TRICUSPID VALVE: The valve appears to be grossly normal. Doppler: There was no evidence for stenosis. Mild regurgitation. PERICARDIUM: There was no pericardial effusion. Patient weight: 267.4lb _Ejection fraction:_ 65-75% _Fractional shortening:_ 32% up to 5Kg 5-11.5Kg 11.6-22.9Kg 23-45Kg 45-57Kg Aortic Root 7-13 <17 13-22 17-27 17-27 LA diam 6-13 <23 24-38 33-47 37-40 RVID 10-17 7-15 7-15 7-18 8-17 LVIDd 12-22 <32 24-38 33-47 37-40 LVPW 2-4 3-6 5-7 6-8 7-8 IVS 2-4 3-6 5-7 6-8 7-8 BASIC MEASUREMENTS ADULT NORMAL Left ventricle LV internal dimension, ED, chordal *54.2 mm 43-52 level, PLAX LV internal dimension, ES, chordal 35.2 mm 23-38 level, PLAX Fractional shortening, chordal level, 35 % >29 PLAX LV posterior wall thickness, ED 12 mm IVS/LVPW ratio, ED 1 <1.3 Ventricular septum Septal thickness, ED 12 mm Aortic valve Leaflet separation 15 mm 15-26 Aorta Root diameter, ED 28 mm Left atrium Anterior-posterior dimension 45 mm Anterior-posterior dimension index 1.92 cm/m^2 <2.2 BASIC MEASUREMENTS ADULT NORMAL Aortic valve Leaflet separation 15 mm 15-26 DOPPLER MEASUREMENTS ADULT NORMAL Main pulmonary artery Pressure, S *59 mm Hg =30 Aortic valve Peak velocity, S 346 cm/s Mean velocity, S 248 cm/s VTI, S 69.5 cm Mean gradient, S 28 mm Hg Peak gradient, S 48 mm Hg Valve area, VTI 0.85 cm^2 Valve area index, VTI 0.36 cm^2/m^2 Valve area, Vmax 2.29 cm^2 Valve area index, Vmax 0.98 cm^2/m^2 Mitral valve Peak E-wave velocity 148 cm/s Peak A-wave velocity 87.2 cm/s Deceleration time 201 ms 150-230 Peak gradient, D 9 mm Hg Peak E/A ratio 1.7 Tricuspid valve Regurgitant peak velocity 368 cm/s Peak RV-RA gradient, S 54 mm Hg Maximal regurgitant velocity 368 cm/s Systemic veins Estimated CVP 10 mm Hg Right ventricle RV pressure, S *64 mm Hg <30 Pulmonic valve Peak velocity, S 116 cm/s LEGEND: Mean values are shown as u=mean value. Asterisk (*) gurrola values outside specified normal range. Prepared and signed by Pablo Bhardwaj [id number]
[2016-05-19] MEDS: ASPIRIN EC 81 MG TABEC PO SCH (22:49)
[2016-05-19] MEDS: DOCUSATE SODIUM 100 MG CAP PO SCH (22:49)
[2016-05-19] MEDS: ATORVASTATIN 40 MG TAB PO SCH (22:50)
[2016-05-19] MEDS: cefTRIAXone INJ 1,000 MG in SODIUM CHLORIDE 0.9% INJ 100 ML IV SCH (22:52)
[2016-05-19] MEDS: AZITHROMYCIN INJ 500 MG in SODIUM CHLOR 0.9% 250 ML INJ 250 ML IV SCH (22:57)
[2016-05-20] VITALS (11 sets, daily range): BP systolic 96–158; BP diastolic 50–71; PULSE 79–97; RESP 18–44; TEMP 96.3–99.8; O2SAT 89–97
[2016-05-20] MEDS: INSULIN ASPART SUPPLEMENTAL SCALE SQ SCH ×4 (05:50→21:00)
[2016-05-20] MEDS: RESP: ALBUTEROL 2.5 MG/IPRATROPIUM 0.5 MG NEB (SCH) NEB ×4 (08:20→19:30)
--- NOTE | 2016-05-20 08:36 | RADRPT ---
EXAM DATE/TIME: 05/20/2016 07:52 [place] COMPARISON: No previous studies available for comparison. INDICATIONS: Short of breath, fever, congestion. MEDICAL HISTORY: Cardiovascular disease. Hypertension SURGICAL HISTORY: CABG. ENCOUNTER: Subsequent ACUITY: 3 days PAIN SCORE: 0/10 LOCATION: Bilateral chest FINDINGS: Median sternotomy wires are noted status post cardiac surgery. Diffuse increased interstitial infilt rates are noted bilaterally (left slightly worse than the right) consistent with asymmetric pulmonary edema versus pneumonia. Clinical correlation is recommended. The heart is enlarged. CONCLUSION: 1. Diffuse increased interstitial infiltrates (left slightly worse than right) consistent with mild asymmetric pulmonary edema versus pneumonia. Clinical correlation is recommended. 2. Cardiomegaly. Lucien German MD on May 20, 2016 at 8:28 Board Certified Radiologist. This report was verified electronically.
--- NOTE | 2016-05-20 08:55 | PD.CARD.PN ---
Subjective Subjective Remarks Feeling better. Denies CP, SOB, chills, sweats or cough. Objective Medications Current Medications Medications (Trade) Dose Ordered Sig/Nicholas Route PRN Reason Start Time Stop Time Status Last Admin Dose Admin Sodium Chloride (NS 1000 ml Inj) 1,000 ml @ 50 mls/hr Q20H IV 05/18/16 21:00 05/18/16 22:57 IV Flush (NS Flush) 2 ml UNSCH PRN FLUSH FLUSH AFTER USING IV ACCESS 05/18/16 20:30 IV Flush (NS Flush) 2 ml BID FLUSH 05/18/16 21:00 05/19/16 21:00 Heparin Sodium (Porcine) (Heparin Inj) 5,000 units Q12H SQ 05/18/16 22:00 05/19/16 22:50 Naloxone HCl 0.4 mg 0.4 mg UNSCH PRN IV SEE LABEL COMMENTS 05/18/16 20:30 Ceftriaxone Sodium 1000 mg/ Sodium Chloride 100 ml @ 200 mls/hr Q24H IV 05/18/16 22:00 05/19/16 22:52 Azithromycin/ Sodium Chloride (Zithromax Inj/ NS 250 ml Inj) 250 ml @ 250 mls/hr Q24H IV 05/18/16 22:00 05/19/16 22:57 Aspirin (Ecotrin Ec) 81 mg HS PO 05/18/16 21:00 05/19/16 22:49 Atorvastatin Calcium (Lipitor) 40 mg HS PO 05/18/16 21:00 05/19/16 22:50 Calcium Polycarbophil (Fiber Con) 625 mg HS PRN PO CONSTIPATION 05/18/16 20:45 Cholecalciferol (Vitamin D3) 5,000 units DAILY PO 05/19/16 09:00 05/19/16 09:30 Docusate Sodium (Colace) 100 mg HS PO 05/18/16 21:00 05/19/16 22:49 Metoprolol Tartrate (Lopressor) 25 mg BID PO 05/18/16 21:00 05/19/16 22:50 Multivitamin Hematinic Therapeutic (Theragran Hematinic) 1 tab DAILY PO 05/19/16 09:00 05/19/16 09:31 Pantoprazole Sodium (Protonix) 20 mg DAILY PO 05/19/16 09:00 05/19/16 09:30 Zolpidem Tartrate (Ambien) 10 mg HS PO 05/18/16 21:00 05/19/16 22:49 Budesonide/ Formoterol Fumarate (Symbicort 80-4.5 Mcg Inh) 2 puff BID INH 05/18/16 22:00 05/19/16 22:48 Gabapentin (Neurontin) 200 mg TID PO 05/19/16 13:00 05/19/16 17:03 Dextrose (D50w (Vial) Inj) 25 ml UNSCH PRN IV PUSH HYPOGLYCEMIA-SEE COMMENTS 05/19/16 11:00 Glucagon (Glucagon Inj) 1 mg UNSCH PRN OTHER HYPOGLYCEMIA-SEE COMMENTS 05/19/16 11:00 Vital Signs / I&O Vital Signs Date Time Temp Pulse Resp B/P Pulse Ox O2 Delivery O2 Flow Rate FiO2 05/20/16 08:23 96 Nasal Cannula 3.00 05/20/16 04:00 98.6 89 18 96/50 91 05/20/16 00:00 98.7 79 18 98/57 93 05/19/16 20:45 96.8 86 18 124/59 94 05/19/16 19:55 98 Nasal Cannula 3.00 05/19/16 19:10 72 05/19/16 16:30 97.8 73 20 162/72 92 05/19/16 12:14 95 Nasal Cannula 3.00 05/19/16 12:00 98.8 73 18 113/54 94 I/O 05/19/16 05/19/16 05/19/16 05/20/16 05/20/16 05/20/16 07:00 15:00 23:00 07:00 15:00 23:00 Intake Total 1398 ml 962 ml 240 ml 100 ml Balance 1398 ml 962 ml 240 ml 100 ml Intake Oral 100 ml 960 ml 240 ml 100 ml IV Total 1298 ml 2 ml # Voids 1 2 1 1 # Bowel Movements 0 1 0 0 Physical Exam VSS, afebrile No JVD Lungs: CTA Heart RRR, 1/6 BIRD. Ext: No C/C/E Neuro: intact. Laboratory Laboratory Tests Test 05/18/16 05/19/16 17:25 02:37 Lactic Acid Level 2.0 mmol/L White Blood Count 19.8 TH/MM3 Red Blood Count 3.66 MIL/MM3 Hemoglobin 10.7 GM/DL Hematocrit 32.9 % Mean Corpuscular Volume 89.9 FL Mean Corpuscular Hemoglobin 29.1 PG Mean Corpuscular Hemoglobin 32.4 % Concent Red Cell Distribution Width 15.6 % Platelet Count 184 TH/MM3 Mean Platelet Volume 9.3 FL Neutrophils (%) (Auto) 85.5 % Lymphocytes (%) (Auto) 6.8 % Monocytes (%) (Auto) 7.3 % Eosinophils (%) (Auto) 0.2 % Basophils (%) (Auto) 0.2 % Neutrophils # (Auto) 16.9 TH/MM3 Lymphocytes # (Auto) 1.3 TH/MM3 Monocytes # (Auto) 1.4 TH/MM3 Eosinophils # (Auto) 0.0 TH/MM3 Basophils # (Auto) 0.0 TH/MM3 CBC Comment DIFF FINAL Differential Comment Sodium Level 141 MEQ/L Potassium Level 4.8 MEQ/L Chloride Level 107 MEQ/L Carbon Dioxide Level 27.9 MEQ/L Anion Gap 6 MEQ/L Blood Urea Nitrogen 28 MG/DL Creatinine 1.89 MG/DL Estimat Glomerular Filtration 36 ML/MIN Rate Random Glucose 84 MG/DL Calcium Level 8.2 MG/DL Total Creatine Kinase 359 U/L Creatine Kinase MB 1.4 NG/ML Creatine Kinase MB % 0.4 % Troponin I 0.05 NG/ML Assessment and Plan Problem List: (1) Hypotension (2) Leukocytosis (3) Chest pain, atypical (4) Cbdae-ry-hljatxr kidney injury (5) Diabetes mellitus type 2, diet-controlled (6) Elevated troponin (7) Arteriosclerotic heart disease (ASHD) (8) Pneumonia Assessment and Plan Echo results reviewed. Labs fro this AM still pending. Blood cultures all negative so far. CV stable. Will leave him off amlodipine for now. 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 Will evaluate as outpatient when renal function improved. Take all BP readings from left arm. Continue Rx for suspected pneumonia. D/C telemetry. No further inpatient cardiac workup at this time. I will follow PRN Code Status Full Discussed Condition With Patient. Problem Qualifiers (1) Hypotension: Qualified Code: I95.9 - Hypotension, unspecified hypotension type (2) Leukocytosis: Qualified Code: D72.828 - Other elevated white blood cell (WBC) count Tray Emery MD May 20, 2016 08:54
[2016-05-20] MEDS: METOPROLOL TARTRATE 25 MG TAB PO SCH ×2 (09:14→21:13)
[2016-05-20] MEDS: MULTIVITAMIN HEMATINIC THERAPEUTIC TAB PO SCH (09:14)
[2016-05-20] MEDS: GABAPENTIN 100 MG CAP PO SCH ×3 (09:14→17:37)
[2016-05-20] MEDS: PANTOPRAZOLE SOD 20 MG DELAYED RELEASE TAB PO SCH (09:14)
[2016-05-20] MEDS: CHOLECALCIFEROL (VIT D3) 5000 UNIT CAP PO SCH (09:14)
[2016-05-20 10:10] LABS: HEMATOCRIT 29.4 % (39.0-51.0); MEAN CELL VOLUME 89.1 FL (80.0-100.0); MEAN CORPUSCULAR HEMOGLOBIN 29.3 PG (27.0-34.0); MEAN CORPUSCULAR HGB CONC 32.8 % (32.0-36.0); PLATELET COUNT 175 TH/MM3 (150-450); RED CELL DISTRIBUTION WIDTH 15.5 % (11.6-17.2); REVIEW FLAG FINAL; WHITE BLOOD COUNT 14.9 TH/MM3 (4.0-11.0)
[2016-05-20 10:12] LABS: ANION GAP 8 MEQ/L (5-15); BICARBONATE 24.6 MEQ/L (21.0-32.0); BLOOD UREA NITROGEN 23 MG/DL (7-18); CHLORIDE 105 MEQ/L (98-107); GLOMERULAR FILTRATION RATE 40 ML/MIN (>89); HDL CHOLESTEROL 35.5 MG/DL (40.0-60.0); LDL CHOLESTEROL 39 MG/DL (0-99); POTASSIUM 4.1 MEQ/L (3.5-5.1); SODIUM (NA) 138 MEQ/L (136-145)
--- NOTE | 2016-05-20 10:16 | HHI.PR ---
Subjective Subjective Remarks Shortness of breath No chest pain Edema hands and feet Anxiety Review of Systems Constitutional Constitutional: Fatigue, Weakness Constitutional Remarks 10 point ROS done. Positives noted with fatigue, weakness, O2 sat 81 on room air, shortness of breath, anxiety Pulmonary Respiratory: Shortness of Breath, Wheezing Musculoskeletal MS: Weakness, Swelling (upper and lower extremities, abdomen) MS Remarks Obese Psychiatric Psychiatric: Agitation, Anxiety Vitals/Results Intake & Output 05/19/16 05/19/16 05/20/16 15:00 23:00 07:00 Intake Total 962 ml 240 ml 100 ml Balance 962 ml 240 ml 100 ml Intake Oral 960 ml 240 ml 100 ml IV Total 2 ml # Voids 2 1 1 # Bowel Movements 1 0 0 Vital Signs Vital Signs Date Time Temp Pulse Resp B/P Pulse Ox O2 Delivery O2 Flow Rate FiO2 05/20/16 08:23 96 Nasal Cannula 3.00 05/20/16 08:09 98.7 82 24 141/64 89 05/20/16 04:00 98.6 89 18 96/50 91 05/20/16 00:00 98.7 79 18 98/57 93 05/19/16 20:45 96.8 86 18 124/59 94 05/19/16 19:55 98 Nasal Cannula 3.00 05/19/16 19:10 72 05/19/16 16:30 97.8 73 20 162/72 92 05/19/16 12:14 95 Nasal Cannula 3.00 05/19/16 12:00 98.8 73 18 113/54 94 CBC/BMP: 05/20/16 0910 05/19/16 0237 Lab Results Laboratory Tests Test 05/20/16 09:10 White Blood Count 14.9 TH/MM3 Red Blood Count 3.30 MIL/MM3 Hemoglobin 9.7 GM/DL Hematocrit 29.4 % Mean Corpuscular Volume 89.1 FL Mean Corpuscular Hemoglobin 29.3 PG Mean Corpuscular Hemoglobin 32.8 % Concent Red Cell Distribution Width 15.5 % Platelet Count 175 TH/MM3 Mean Platelet Volume 9.1 FL Imaging Remarks Last Impressions Chest X-Ray 05/18/16 0000 Signed Impressions: Service Date/Time: Wednesday, May 18, 2016 18:07 - CONCLUSION: 1. Cardiomegaly with hazy left-sided air space disease in the lung. Differential diagnosis includes bronchopneumonia or asymmetric edema. Getachew Perez MD Current Medications Active Medications Alprazolam (Xanax) 0.25 mg Q8H PRN PO; Start 05/20/16 at 09:45 Dextrose (D50w (Vial) Inj) 25 ml UNSCH PRN IV PUSH; Start 05/19/16 at 11:00 Gabapentin (Neurontin) 200 mg TID PO Last administered on 05/20/16t 09:14; Admin Dose 200 MG; Start 05/19/16 at 13:00 Glucagon (Glucagon Inj) 1 mg UNSCH PRN OTHER; Start 05/19/16 at 11:00 Physical Exam General General Appearance: Well Developed, Anxious, Obese Eyes Eye Exam: Pupils Equal, Pupils Reactive Ears & Nose Ears & Nose Exam: Nasal Mucosa [place] Throat Throat Exam: Oral Mucosa [place] & Moist Neck Neck Exam: Neck Supple Neck Remarks Obese neck, short Pulmonary Resp Exam: Crackles, Decreased Bases, Diminished Breath Sounds, Poor Inspiratory Effort, Labored Resp Remarks At rest and on exertion Cardiology CV Exam: Normal Sinus Rhythm, Dyspnea on Exertion CV Remarks 82 heart rate, telemetry Gastrointestinal/Abdomen GI Exam: Soft, Non-Tender, Bowel Sounds Present, Distended Musculoskeletal MS Exam: Joints Intact Integumentary Skin Exam: Warm, Dry, Intact Extremeties Extremities Exam: Moderate Edema, Dependent Edema Neurologic Neuro Exam: Alert, Awake, Oriented, Speech Clear, Moving All Extremities VTE Prophylaxis VTE Remarks ASA PUD Prophylasis PUD Prophylaxis: Protonix Assessment/Plan Assessment/Plan (1) Leukocytosis (2) Hypotension (3) Pre-syncope (4) Chest pain in adult (5) Hx of aortic valve repair (6) Sleep apnea (7) Elevated troponin (8) Jfyem-zt-pvobvya kidney injury (9) COPD (chronic obstructive pulmonary disease) (10) Neuropathy (11) Diabetes mellitus type 2, diet-controlled Hypertension, with leukocytosis, possible early sepsis, secondary to pulmonary process, labs pending, leukocytosis 19.8 Continue to follow cultures Continue antibiotics, azithromycin and Rocephin Cardiology consult -Continue aspirin, beta blockers, statin -2-D echo shows EF 55-60%, valvular disease Will follow prn COPD, stable DuoNeb's as needed for wheezing we'll monitor sats DEMETRI: Shortness of breath continues at rest and with exertional dyspnea. O2 sat 81 on room air this morning. Patient now on O2 at 2 L. Pt. uses CPAP at home. Order placed for hospital CPAP, evaluate for settings. Pt. does not remember his settings Mild anxiety And agitation this a.m. wants to discharge, but advised to stay for further workup. Dr. Massey evaluated needs placed on Xanax. We will monitor. Diet-controlled diabetes Accu-Cheks before meals and at bedtime with insulin therapy as needed Acute on chronic renal injury Continue with cautious hydration labs pending Status post CABG 2 with aortic valve replacement Heparin for DVT prophylaxis Protonix for GI prophylaxis Home medications reviewed, initiated as indicated Plan of care has been discussed with the patient, attending and registered nurse. This patient was seen by myself and Dr. Massey, this H&P is written on his behalf Assessment and Plan pt seen and examined in [facility] face to face time spent with pt chart reviwed including labs rad data and meds reviewed plan of care katerine garcias pt (Elizabeth Massey MD) Angela Chairez May 20, 2016 10:16
[2016-05-20] MEDS: ALPRAZolam 0.25 MG TAB PO PRN (14:39)
[2016-05-20 17:50] LABS: HEMOGLOBIN A1a 0.9 %; HEMOGLOBIN Ao 83.3 %; HEMOGLOBIN LA1C 2.2 %; HEMOGLOBIN P3 4.1 %
[2016-05-20] MEDS: BUDESONIDE-FORMOTEROL 80/4.5 MCG INHALER INH SCH (21:00)
[2016-05-20] MEDS: ATORVASTATIN 40 MG TAB PO SCH (21:13)
[2016-05-20] MEDS: ASPIRIN EC 81 MG TABEC PO SCH (21:13)
[2016-05-20] MEDS: DOCUSATE SODIUM 100 MG CAP PO SCH (21:13)
[2016-05-20] MEDS: cefTRIAXone INJ 1,000 MG in SODIUM CHLORIDE 0.9% INJ 100 ML IV SCH (21:14)
[2016-05-20] MEDS: ZOLPIDEM TARTRATE 10 MG TAB PO SCH (22:22)
[2016-05-20] MEDS: AZITHROMYCIN INJ 500 MG in SODIUM CHLOR 0.9% 250 ML INJ 250 ML IV SCH (22:25)
[2016-05-21] MEDS: ALPRAZolam 0.25 MG TAB PO PRN ×2 (01:11→08:00)
[2016-05-21 02:50] VITALS: RESP 27
[2016-05-21 03:49] VITALS: BP 135/65; PULSE 69; RESP 30; RESP 40; TEMP 98.8; O2SAT 99
[2016-05-21 05:28] VITALS: RESP 29
[2016-05-21] MEDS: INSULIN ASPART SUPPLEMENTAL SCALE SQ SCH (05:35)
[2016-05-21] MEDS: RESP: ALBUTEROL 2.5 MG/IPRATROPIUM 0.5 MG NEB (SCH) NEB (07:56)
[2016-05-21] MEDS: GABAPENTIN 100 MG CAP PO SCH (07:59)
[2016-05-21] MEDS: BUDESONIDE-FORMOTEROL 80/4.5 MCG INHALER INH SCH (07:59)
[2016-05-21 08:00] VITALS: BP 190/84; PULSE 75; RESP 32; TEMP 97.7; O2SAT 93
[2016-05-21] MEDS: MULTIVITAMIN HEMATINIC THERAPEUTIC TAB PO SCH (08:00)
[2016-05-21] MEDS: CHOLECALCIFEROL (VIT D3) 5000 UNIT CAP PO SCH (08:00)
[2016-05-21] MEDS: PANTOPRAZOLE SOD 20 MG DELAYED RELEASE TAB PO SCH (08:00)
[2016-05-21] MEDS: METOPROLOL TARTRATE 25 MG TAB PO SCH (08:15)
[2016-05-21 08:17] LABS: BLOOD GAS BASE EXCESS -0.4 mmol/L (-2-2); BLOOD GAS CARBOXYHEMOGLOBIN 1.6 % (0-4); BLOOD GAS HCO3 24 mmol/L (22-26); BLOOD GAS METHEMOGLOBIN 0.8 % (0-2); BLOOD GAS O2 HGB SATURATION 86 % (90-100); BLOOD GAS OXYGEN CONTENT 13.4 Vol % (12.0-20.0); BLOOD GAS PCO2 39 mmHg (38-42); BLOOD GAS PO2 57 mmHg (61-120); BLOOD GAS TOTAL HGB 11.1 G/DL (12.0-16.0); TEMP CORR TO 98.6
[2016-05-21 08:18] LABS: CRITICAL VALUE YES; DRAW SITE LT RADIAL; FIO2 21 %; NUMBER OF ARTERIAL PUNCTURES 1
[2016-05-21 08:19] LABS: STAT YES; ULNAR PULSE PRESENT
--- NOTE | 2016-05-21 08:54 | HHI.PR ---
Subjective Interval History Patient offering no complaint As the patient feeling better Wants to go home Denies any shortness of breath neck/denies any pain denies any nausea and vomiting Doesn't want to be in the hospital wants to go home once to sign out AGAINST MEDICAL ADVICE Review of systems a 12 point system otherwise unremarkable Review of Systems Constitutional Constitutional: Fatigue, Weakness Pulmonary Respiratory: Shortness of Breath, Wheezing Musculoskeletal MS: Weakness, Swelling (upper and lower extremities, abdomen) Psychiatric Psychiatric: Agitation, Anxiety Vitals/Results Intake & Output 05/20/16 05/20/16 05/21/16 15:00 23:00 07:00 Intake Total 480 ml 120 ml 0 ml Balance 480 ml 120 ml 0 ml Intake Oral 480 ml 120 ml 0 ml # Voids 3 4 4 # Bowel Movements 1 0 0 Vital Signs Vital Signs Date Time Temp Pulse Resp B/P Pulse Ox O2 Delivery O2 Flow Rate FiO2 05/21/16 08:05 97 Nasal Cannula 3.00 30 05/21/16 08:00 97.7 75 32 190/84 93 05/21/16 05:28 29 05/21/16 03:49 98.8 69 30 135/65 99 Manual Cuff/Auscultation 05/21/16 02:50 27 05/20/16 23:50 99.3 85 44 132/63 94 05/20/16 21:20 97 30 05/20/16 20:50 99.8 97 40 158/71 92 05/20/16 20:50 96 05/20/16 16:07 96.3 85 22 145/64 91 05/20/16 16:00 96.3 85 20 145/64 91 05/20/16 15:36 92 Nasal Cannula 3.00 05/20/16 12:09 99.0 80 22 146/58 92 CBC/BMP: 05/20/16 0910 05/20/16 0910 Lab Results Laboratory Tests Test 05/20/16 05/21/16 09:10 08:03 White Blood Count 14.9 TH/MM3 Red Blood Count 3.30 MIL/MM3 Hemoglobin 9.7 GM/DL Hematocrit 29.4 % Mean Corpuscular Volume 89.1 FL Mean Corpuscular Hemoglobin 29.3 PG Mean Corpuscular Hemoglobin 32.8 % Concent Red Cell Distribution Width 15.5 % Platelet Count 175 TH/MM3 Mean Platelet Volume 9.1 FL Sodium Level 138 MEQ/L Potassium Level 4.1 MEQ/L Chloride Level 105 MEQ/L Carbon Dioxide Level 24.6 MEQ/L Anion Gap 8 MEQ/L Blood Urea Nitrogen 23 MG/DL Creatinine 1.70 MG/DL Estimat Glomerular Filtration 40 ML/MIN Rate Random Glucose 145 MG/DL Hemoglobin A1c 6.9 % Calcium Level 8.1 MG/DL Triglycerides Level 96 MG/DL Cholesterol Level 94 MG/DL LDL Cholesterol 39 MG/DL HDL Cholesterol 35.5 MG/DL Cholesterol/HDL Ratio 2.64 RATIO Blood Gas Puncture Site LT RADIAL Blood Gas Patient Temperature 98.6 Blood Gas HCO3 24 mmol/L Blood Gas Base Excess -0.4 mmol/L Blood Gas Oxygen Saturation 86 % Arterial Blood pH 7.40 Arterial Blood Partial 39 mmHg Pressure CO2 Arterial Blood Partial 57 mmHg Pressure O2 Arterial Blood Oxygen Content 13.4 Vol % Arterial Blood 1.6 % Carboxyhemoglobin Arterial Blood Methemoglobin 0.8 % Blood Gas Hemoglobin 11.1 G/DL Blood Gas Inspired Oxygen 21 % Physical Exam General General Appearance: Well Developed, Anxious, Obese Eyes Eye Exam: Pupils Equal, Pupils Reactive Ears & Nose Ears & Nose Exam: Nasal Mucosa [place] Throat Throat Exam: Oral Mucosa [place] & Moist Neck Neck Exam: Neck Supple Pulmonary Resp Exam: Breath Sounds Equal, Decreased Bases, Diminished Breath Sounds Resp Remarks Occasional rhonchi bibasally Cardiology CV Exam: Normal Sinus Rhythm, Dyspnea on Exertion Gastrointestinal/Abdomen GI Exam: Soft, Non-Tender, Bowel Sounds Present, Distended Musculoskeletal MS Exam: Joints Intact Integumentary Skin Exam: Warm, Dry, Intact Extremeties Extremities Exam: Moderate Edema, Dependent Edema Neurologic Neuro Exam: Alert, Awake, Oriented, Speech Clear, Moving All Extremities, No Focal Deficits PUD Prophylasis PUD Prophylaxis: Protonix Assessment/Plan Assessment/Plan (1) Leukocytosis (2) Hypotension (3) Pre-syncope (4) Chest pain in adult (5) Hx of aortic valve repair (6) Sleep apnea (7) Elevated troponin (8) Xgfvl-qb-rvekbbk kidney injury (9) COPD (chronic obstructive pulmonary disease) (10) Neuropathy (11) Diabetes mellitus type 2, diet-controlled Hypertension, with leukocytosis, possible early sepsis, secondary to pulmonary process, labs pending, leukocytosis on admission Continue to follow cultures Continue antibiotics, azithromycin and Rocephin Cardiology consult -Continue aspirin, beta blockers, statin -2-D echo shows EF 55-60%, valvular disease Will follow prn COPD, stable DuoNeb's as needed for wheezing we'll monitor sats DEMETRI: Shortness of breath continues at rest and with exertional dyspnea. O2 sat 81 on room air this morning. Patient now on O2 at 2 L. Pt. uses CPAP at home. Order placed for hospital CPAP, evaluate for settings. Pt. does not remember his settings No anxiety Diet-controlled diabetes Accu-Cheks before meals and at bedtime with insulin therapy as needed Acute on chronic renal injury Continue with cautious hydration labs pending Status post CABG 2 with aortic valve replacement Heparin for DVT prophylaxis Protonix for GI prophylaxis Home medications reviewed, initiated as indicated Plan of care has been discussed with the patient. Explained to patient in detail about his condition. Labs explained to patient including ABG. Advised to stay in hospital and continue his management. Patient is alert and oriented has good insight of his condition. Patient understood the consequences of leaving AGAINST MEDICAL ADVICE. Consequences include but not limited to respiratory failure and . Patient signing out AGAINST MEDICAL ADVICE even though explained in detail. We will give him a prescription for antibiotics by mouth. Advised to call 911 if condition gets worse. Patient understood very well. This is witnessed by RN at bedside. Extensive time spent in management of this patient including discussion. This patient was seen by myself and Dr. 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
--- NOTE | 2016-05-21 09:06 | HHI.DS ---
Discharge Summary Admission Date May 18, 2016 at 18:54 Admitting Diagnosis hypotension,chest pain,presyncope (1) Leukocytosis Diagnosis: Principal (2) Hypotension Diagnosis: Principal (3) Pre-syncope Diagnosis: Principal (4) Chest pain in adult Diagnosis: Principal (5) Hx of aortic valve repair Diagnosis: Principal (6) Sleep apnea Diagnosis: Principal (7) Elevated troponin Diagnosis: Principal (8) Cgklb-ss-kaeqzwq kidney injury Diagnosis: Principal (9) COPD (chronic obstructive pulmonary disease) Diagnosis: Principal (10) Neuropathy Diagnosis: Principal (11) Diabetes mellitus type 2, diet-controlled Diagnosis: Principal Brief History This is a pleasant 70-year-old male with history of coronary artery disease, aortic valve disease, status post CABG 2 with aortic valve replacement in 2011 , sleep apnea, hypertension. Patient presented to the emergency room with complaint of lightheadedness and chills. Patient indicates that he woke up feeling very weak, he had increased chills and was shivering, he's not sure if he had fever. States that he did have pain over his left breast, nonradiating associated with some shortness of breath. It did not last very long, it went away on its own. He has noted some orthopnea. He's had a cough, with some blood-tinged sputum. He denies any recent sick contacts. Patient was evaluated in the emergency room, he was noted critically ill, was hypotensive blood pressure 77/45, heart rate 72, temperature 99.2, sats were 96% on 2 L. Patient had 2 L of IV fluid given, blood cultures were obtained. CBC was remarkable for leukocytosis, WBC 16.3. Lactic acid was 2. He was noted with acute renal injury, patient does have some underlying kidney disease. He was noted hyperkalemic with potassium 5.5. Troponin was 0.04. Patient was given IV antibiotics. EKG was reviewed, it was sinus rhythm no ST segment elevation. He did have some T-wave inversion lateral leads. Chest x-ray showed cardiomegaly with lacy left-sided airspace disease in the lung, differential diagnosis include bronchopneumonia or asymmetric edema. Patient was admitted After IV fluids, patient did appear clinically improved. Patient was kept on IV antibiotic and appropriate medications including breathing treatments. Patient was seen by Dr. Lynn who who followed him. Patient was continued on antibiotic. But patient doesn't want to stay in the hospital. Consequences consist of leaving AGAINST MEDICAL ADVICE explained to patient in detail. These consequences including but not limited to respiratory failure and . Patient has been advised and recommended to call 911 if his condition get worse. Patient understood all very well. He is signing out AGAINST MEDICAL ADVICE even though explained about his condition situation and consequences in detail in presence of RN. Patient is alert oriented and he understood his situation very well. CBC/BMP: 05/20/16 0910 05/20/16 0910 Significant Findings Laboratory Tests Test 05/18/16 05/19/16 05/19/16 05/20/16 17:25 01:34 02:37 09:10 White Blood Count 16.3 TH/MM3 19.8 TH/MM3 14.9 TH/MM3 (4.0-11.0) (4.0-11.0) (4.0-11.0) Red Blood Count 3.97 MIL/MM3 3.66 MIL/MM3 3.30 MIL/MM3 (4.50-5.90) (4.50-5.90) (4.50-5.90) Hemoglobin 11.8 GM/DL 10.7 GM/DL 9.7 GM/DL (13.0-17.0) (13.0-17.0) (13.0-17.0) Hematocrit 35.0 % 32.9 % 29.4 % (39.0-51.0) (39.0-51.0) (39.0-51.0) Neutrophils (%) (Auto) 89.2 % 85.5 % (16.0-70.0) (16.0-70.0) Lymphocytes (%) (Auto) 3.6 % 6.8 % (9.0-44.0) (9.0-44.0) Neutrophils # (Auto) 14.6 TH/MM3 16.9 TH/MM3 (1.8-7.7) (1.8-7.7) Lymphocytes # (Auto) 0.6 TH/MM3 (1.0-4.8) Monocytes # (Auto) 1.1 TH/MM3 1.4 TH/MM3 (0-0.9) (0-0.9) Potassium Level 5.5 MEQ/L (3.5-5.1) Blood Urea Nitrogen 24 MG/DL (7-18) 28 MG/DL (7-18) 23 MG/DL (7-18) Creatinine 1.96 MG/DL 1.89 MG/DL 1.70 MG/DL (0.60-1.30) (0.60-1.30) (0.60-1.30) Estimat Glomerular Filtration 34 ML/MIN (>89) 36 ML/MIN (>89) 40 ML/MIN (>89) Rate Random Glucose 109 MG/DL 145 MG/DL (74-106) (74-106) Troponin I 0.06 NG/ML (0.02-0.05) Calcium Level 8.2 MG/DL 8.1 MG/DL (8.5-10.1) (8.5-10.1) Total Creatine Kinase 359 U/L (39-308) Hemoglobin A1c 6.9 % (4.3-6.0) Cholesterol Level 94 MG/DL (120-200) HDL Cholesterol 35.5 MG/DL (40.0-60.0) Test 05/21/16 08:03 Blood Gas Oxygen Saturation 86 % (90-100) Arterial Blood Partial 57 mmHg Pressure O2 (61-120) Blood Gas Hemoglobin 11.1 G/DL (12.0-16.0) Pt Condition on Discharge: Guarded Discharge Instructions DIET: Follow Instructions for: Heart Healthy Diet, Diabetic Diet Activities you can perform: Weight Bearing as Elizabeth Harris MD May 21, 2016 09:06
== END 2016-05-21 08:53 | disposition left against medical advice (07) | DRG 684 ==
LOC: NEPA 16:17 → NEDA 18:54 → N04A 23:15
PROVIDERS: ADMIT Specialist; ATTEND Specialist
DX: N17.9 Acute kidney failure, unspecified (principal); I95.9 Hypotension, unspecified; E11.22 Type 2 diabetes mellitus with diabetic chronic kidney disease; I50.9 Heart failure, unspecified; Z99.81 Dependence on supplemental oxygen; J44.9 Chronic obstructive pulmonary disease, unspecified; E87.5 Hyperkalemia; R07.9 Chest pain, unspecified; D72.829 Elevated white blood cell count, unspecified; R55 Syncope and collapse; E78.00 Pure hypercholesterolemia, unspecified; H91.90 Unspecified hearing loss, unspecified ear; I25.10 Atherosclerotic heart disease of native coronary artery without angina pectoris; N18.9 Chronic kidney disease, unspecified; I12.9 Hypertensive chronic kidney disease with stage 1 through stage 4 chronic kidney disease, or unspecified chronic kidney disease; K21.9 Gastro-esophageal reflux disease without esophagitis; G47.33 Obstructive sleep apnea (adult) (pediatric); E87.6 Hypokalemia; G62.9 Polyneuropathy, unspecified; Z87.891 Personal history of nicotine dependence; R74.8 Abnormal levels of other serum enzymes; F41.9 Anxiety disorder, unspecified; R06.83 Snoring; Z80.0 Family history of malignant neoplasm of digestive organs; Z95.1 Presence of aortocoronary bypass graft; Z95.2 Presence of prosthetic heart valve; Z82.49 Family history of ischemic heart disease and other diseases of the circulatory system
CPT/HCPCS: 36600; 71010; 71020; 80048; 80061; 82550; 82552; 82805; 82948; 83036; 83605; 84484; 85025; 85027; 87040; 93005; 93306; 94002; 94640; 94664; 96360; J0456; J0696; J1644; J7030; J7050

== ENCOUNTER → 2016-06-24 | Outpatient (CLI) | payer MEDICARE, OTHER ==
[~2016-06-24] MED LIST changes: +ADVA100A INH; -ADVAI100I PO; -ALBU6.7H INH; +AMBI10TA PO; +AMLO5TAB2 PO; -ASPI1TAB7 PO; +ASPI81TA11 PO; +ATOR40TA16 PO; +B COTAB3 PO; +CHOL5000 PO; +COLA100C3 PO; -COZA50TA PO; +CRAN500C2 PO; -DICL1GEL; -DIPH50TA PO; -FAMO20 PO; -FURO10S PO; +FURO20TA PO; +LOSA50TA PO; -MEDR4PAK3 PO; -METO25 PO; +METO25TA3 PO; -NORC7.5T PO; -PANT20 PO; +PANT20TA2 PO; +SAW450CA2 PO; -SIMV20 PO; -STOO240C PO; -ZOLP10TA3 PO; +[UNRECOGNIZED DRUG - OTHER] PO
[2016-06-24 11:21] LABS: BLOOD GAS BASE EXCESS 0.2 mmol/L (-2-2); BLOOD GAS CARBOXYHEMOGLOBIN 1.7 % (0-4); BLOOD GAS HCO3 24 mmol/L (22-26); BLOOD GAS METHEMOGLOBIN 0.9 % (0-2); BLOOD GAS O2 HGB SATURATION 93 % (90-100); BLOOD GAS OXYGEN CONTENT 14.9 Vol % (12.0-20.0); BLOOD GAS PCO2 40 mmHg (38-42); BLOOD GAS PO2 79 mmHg (61-120); BLOOD GAS TOTAL HGB 11.3 G/DL (12.0-16.0); TEMP CORR TO 98.6
[2016-06-24 11:22] LABS: CRITICAL VALUE NO; DRAW SITE LT RADIAL; FIO2 21 %; NUMBER OF ARTERIAL PUNCTURES 1; STAT NO; ULNAR PULSE PRESENT
--- NOTE | 2016-07-02 10:04 | RSPPFT ---
DATE OF PROCEDURE: 06/24/16 COMMENTS: Spirometry shows FVC of 2.2 at 54% of predicted, FEV1 of 1.6 at 56%, FEV1/FVC ratio is decreased. Flow is decreased at FEF 25, FEF 50, FEF 75 and FEF 25-75. There is a mild response after bronchodilator treatment. Lung volumes show residual volume is increased. TLC is increased. Diffusion capacity is decreased. Flow volume loop indicates an obstructive pattern. Room air arterial blood gases show pH of 7.4, PCO2 of 40, PO2 of 79, BiCarb of 24. IMPRESSION: 1. Mild obstructive lung disease. 2. Mild response after bronchodilator treatment. 3. Lung volumes show hyperinflation and air trapping. 4. Diffusion capacity is mildly decreased. 5. Blood gases show normal oxygenation on room air.
== END ==
LOC: HRSP 10:21
PROVIDERS: ATTEND Internal Medicine Interventional Cardiology
DX: R06.02 Shortness of breath (principal)
CPT/HCPCS: 36600; 82805; 94060; 94726; 94729

== ENCOUNTER 2017-03-03 23:00 | Emergency (ER) | payer MEDICARE, OTHER ==
[~2017-03-03] VITALS: Ht 175.3 cm; Wt 112.0 kg
[~2017-03-03 23:00] MED LIST changes: -ASPI81TA11 PO; +ASPI81TA23 PO
[2017-03-03 23:01] VITALS: BP 137/63; PULSE 98; RESP 22; TEMP 98.8; O2SAT 93
[2017-03-03] MEDS ORDERED: DULO1CAP2 PO (23:43)
--- NOTE | 2017-03-03 23:54 | PD ---
HPI Chief Complaint: Injury Time Seen by Provider: 23:41 Travel History International Travel<30 days: No Contact w/Intl Traveler<30days: No Traveled to known affect area: No History of Present Illness HPI Patient comes in for evaluation of right shoulder pain after a mechanical fall. Patient states he was out to dinner he went to get something out of his car and went back inside he lost his balance causing him to fall. Patient did hit his head but denies any loss of consciousness. Denies any neck pain, chest pain , shortness of breath, new numbness or tingling anywhere, headache, change in vision, loss or change in bowel or bladder, or fevers. Patient denies doing anything for this prior coming to the emergency department. PFSH Past Medical History Hx Anticoagulant Therapy: Yes (ASA) Asthma: No Autoimmune Disease: No Heart Rhythm Problems: No Cancer: No Cardiac Catheterization: Yes Cardiovascular Problems: Yes (DOUBLE BYPASS) High Cholesterol: Yes Chest Pain: Yes (05/18/16 IN THE MORNING) Congestive Heart Failure: Yes COPD: Yes Coronary Artery Disease: Yes Diabetes: Yes Patient Takes Glucophage: No Diminished Hearing: Yes ([place]) Endocrine: Yes Gastrointestinal Disorders: Yes GERD: Yes Genitourinary: Yes (BPH) Hiatal Hernia: No Hypertension: Yes Immune Disorder: No Kidney Stones: No Musculoskeletal: No Neurologic: Yes (NEUROPATHY) Psychiatric: No Reproductive: No Respiratory: Yes Renal Failure: No Sleep Apnea: Yes (CPAP) Ulcer: No Past Surgical History Abdominal Surgery: No AICD: No Arteriovenous Shunt: No Cardiac Surgery: Yes (AORTIC valve replacement, CABGX2) Coronary Artery Bypass Graft: Yes (double bypass 2011 ) Ear Surgery: No Endocrine Surgery: No Eye Surgery: Yes (BILATERAL CATARACT SURGERY, LENS IMPLANTS) Genitourinary Surgery: No Gynecologic Surgery: No Insulin Pump: No Joint Replacement: No Neurologic Surgery: Yes (IMPLANTED TENS UNIT, REMOVED) Oral Surgery: No Pacemaker: No Thoracic Surgery: No Other Surgery: Yes Social History Alcohol Use: No Tobacco Use: No (QUIT 2011 ) Substance Use: No Allergies-Medications (Allergen,Severity, Reaction): Coded Allergies: lisinopril (Unverified Allergy, Unknown, 03/03/17) angioedema Reported Meds & Prescriptions Reported Meds & Active Scripts Active [place] (Hydrocodone-Acetaminophen) 5 Mg-325 Mg Tab 1 Tab PO Q6H PRN Reported Duloxetine DR (Duloxetine HCl) 30 Mg Capdr 30 Mg PO DAILY [Immune Extra] 1 Tab PO DAILY Gabapentin 600 Mg Tab 600 Mg PO TID Furosemide 20 Mg Tab 20 Mg PO DAILY Pantoprazole (Pantoprazole Sodium) 20 Mg Tab 20 Mg PO DAILY Metoprolol Tartrate 25 Mg Tab 25 Mg PO BID Losartan (Losartan Potassium) 50 Mg Tab 50 Mg PO DAILY Advair Diskus Inh (Fluticasone-Salmeterol Inh) 100-50 Mcg/Blist Aer 1 Puff INH BID Rinse mouth after use. Atorvastatin (Atorvastatin Calcium) 40 Mg Tab 40 Mg PO HS Review of Systems Except as stated in HPI: all other systems reviewed are Neg Physical Exam Narrative GENERAL: Well-developed, overly nourished, in no acute distress, and non-ill appearing. SKIN: Focused skin assessment warm and dry. Superficial abrasions noted right frontal lobe. HEAD: Atraumatic. Normocephalic. EYES: Pupils equal and round. EOMI. No scleral icterus. No injection or drainage. ENT: No nasal bleeding or discharge. Mucous membranes pink and moist. NECK: Trachea midline. Supple. No nuclear rigidity. CARDIOVASCULAR: Radial pulses 2+, intact, and equal bilaterally. Capillary refill less than 2 seconds.. RESPIRATORY: No accessory muscle use. No respiratory distress. MUSCULOSKELETAL: No obvious deformities. No clubbing. No cyanosis. No edema. Decreased range of motion right shoulder secondary to pain. Shoulder: Sensation equal BL deltoid muscles. Pulses equal BL distal to injury. Capillary refill less than 2 seconds distal to injury and equal BL. FROM distal to injury and equal BL. Strength distal to injury equal BL. NV intact distal to injury equal BL. Flexion and extension of thumb equal BL. Equal strength and movement with abduction/adductions of BL fingers. Reel System Operator strength equal BL. Patient reports tenderness to palpation over right proximal humerus. There is no crepitus. NEUROLOGICAL: Awake and alert. No obvious cranial nerve deficits. Motor grossly within normal limits. Normal speech. PSYCHIATRIC: Appropriate mood and affect; insight and judgment normal. Data Data Last Documented VS Vital Signs Date Time Temp Pulse Resp B/P (MAP) Pulse Ox O2 Delivery O2 Flow Rate FiO2 03/04/17 01:44 18 98 Room Air 03/03/17 23:[address] 98[address] Brain W/O Iv Contrast(Rout) (03/03/17 ) Ct Cerv Spine W/O Contrast (03/03/17 ) Iv Access Insert/Monitor (03/03/17 23:46) Ecg Monitoring (03/03/17 23:46) Oximetry (03/03/17 23:46) Sodium Chloride 0.9% Flush (Ns Flush) (03/04/17 00:00) Acetamin-Hydrocod 325-5 Mg ([place] 5-325 (03/04/17 00:00) Ice/Cold Pack (03/03/17 23:54) Shoulder, Limited(2vws) (03/03/17 ) Splint Or Brace Apply/Monitor (03/04/17 00:01) Wound Care (03/04/17 00:09) Tetanus/Diphtheria Tox Adult (Tetanus/Di (03/04/17 00:15) Ed Discharge Order (03/04/17 00:50) MDM Medical Decision Making Medical Screen Exam Complete: Yes Emergency Medical Condition: Yes Differential Diagnosis Fracture, strain, contusion, dislocation, closed head injury, intracranial hemorrhage, abrasion, laceration Narrative Course The patient sustained a fracture. The distal extremity appears neurovascularly intact, without evidence of neurovascular injury nor compartment syndrome. Tendon exam also was intact. The effected limb was splinted. The patient was discharged on pain medication along with fracture and splint care instructions and given warnings for vascular compromise. The patient is to follow up with Orthopedics. The patient agrees with plan. Patient also presents with closed head injury. There was no evidence of cranial or intracranial injury noted on CT of the head and no evidence of fracture or injury to cervical spine on C-spine CT. The patient has been behaving normally and no notable altered mental status. [place] score of 15. The neurologic exam is normal. The patient is awake and aware and motor sensory exams are normal. There is no clinical evidence to support intracranial injury or bleed. The abrasions are very superficial and non-repairable. There was no evidence to suggest foreign bodies. Visual and tactile exams were unremarkable. There was no evidence of neurovascular injury as well. The patients wound/s were cleaned and dressed. The patient was given signs and symptom warnings for infection, such as increasing pain, redness, swelling, associated heat, pus or fever. The patient was given instructions for timely follow up. The patient agreed with plan of care. Patient in no obvious distress upon re-evaluation. All pertinent Radiology result(s) discussed with patient. Discussed patient with Dr. Osorio prior discharge, who is in agreement with plan of care and disposition. Patient was asked if they wanted to speak to my attending, which the patient did not wish to do at this time. Any questions/concerns in reference to patient diagnosis/ condition discussed and clarified prior to patient's discharge. Reinforced sheer importance of close follow up with patient's primary physician or primary care clinic. Instructed patient to return to ED immediately, if symptoms return/ worsen. Patient showed understanding of above instructions. Further instructions and recommendations were detailed in discharge paperwork. Patient ambulated without difficulty out of ED at discharge. Physician Communication Physician Communication [id number] Morales, orthopedist airport operations supervisor, who recommends sling and swath with outpatient follow-up. Diagnosis Primary Impression: Shoulder fracture, right Qualified Codes: S42.91XA - Fracture of right shoulder girdle, part unspecified, initial encounter for closed fracture Additional Impressions: Closed head injury Qualified Codes: S09.90XA - Unspecified injury of head, initial encounter Abrasion Referrals: Sheldon Morales MD Patient Instructions: General Instructions, How to Use a Sling (GEN), Proximal Humerus Fracture (DC) Additional Instructions: Follow-up with orthopedics as soon as possible further treatment and evaluation. Take all medication as prescribed. Apply ice to affected area 20 minutes per hour as needed for pain. Sleep in a single 30 or higher to promote healing and decreased pain. Return to the emergency department if symptoms get worse. Med/Other Pt SpecificInfo: Prescription(s) given Scripts Hydrocodone-Acetaminophen ([place]) 5 Mg-325 Mg Tab 1 TAB PO Q6H Y for PAIN GREATER THAN 7, #14 TAB 0 Refills Prov: Kyle Osorio MD 03/04/17 Disposition: 01 DISCHARGE HOME Condition: Stable Charles Pablo Mar 03, 2017 23:54
[2017-03-04] MEDS ORDERED: ACETAMINOPHEN/HYDROcodone 325 MG/5 MG TAB PO ONE
[2017-03-04] MEDS ORDERED: SODIUM CHLORIDE 0.9% FLUSH 10 ML FLUSH IV FLUSH PRN
--- NOTE | 2017-03-04 00:13 | RADRPT ---
EXAM DATE/TIME: 03/03/2017 23:57 [facility] COMPARISON: No previous studies available for comparison. INDICATIONS : Right shoulder pain post fall. MEDICAL HISTORY : None. SURGICAL HISTORY : None. ENCOUNTER: Initial ACUITY: 1 day PAIN SCORE: 10/10 LOCATION: Right shoulder. FINDINGS: There is a very comminuted fracture of the proximal right humerus involving the surgical neck and gre ater tuberosity. The superolateral portion of the articular surface is involved and with at least 1 m m of step-off and 2 mm of separation. No subluxation. Moderate acromioclavicular joint osteoarthritis. CONCLUSION: Very comminuted surgical neck greater tuberosity and focal articular surface fracturing of the proxim al right humerus. Romulo Pratt MD on March 04, 2017 at 0:10 Board Certified Radiologist. This report was verified electronically.
[2017-03-04] MEDS ORDERED: TETANUS/DIPHTHERIA TOXOID ADULT 0.5 ML VIAL IM ONE (00:15)
--- NOTE | 2017-03-04 00:30 | RADRPT ---
EXAM DATE/TIME: 03/03/2017 23:53 [facility] COMPARISON: No previous studies available for comparison. INDICATIONS : Trauma; fall. RADIATION DOSE: 69.15 CTDIvol (mGy) MEDICAL HISTORY : Hypertension. Cardiovascular disease Chronic obstructive pulmonary disease.Diabetes SURGICAL HISTORY : None. ENCOUNTER: Initial ACUITY: 1 day PAIN SCALE: 8/10 LOCATION: cranial TECHNIQUE: Multiple contiguous axial images were obtained of the head. Using automated exposure control and adj ustment of the mA and/or kV according to patient size, radiation dose was kept as low as reasonably a chievable to obtain optimal diagnostic quality images. DICOM format image data is available electro nically for review and comparison. FINDINGS: CEREBRUM: The ventricles are normal for age. No evidence of midline shift, mass lesion, hemorrhage or acute in farction. No extra-axial fluid collections are seen. POSTERIOR FOSSA: The cerebellum and brainstem are intact. The 4th ventricle is midline. The cerebellopontine angle i s unremarkable. EXTRACRANIAL: The visualized portion of the orbits is intact. SKULL: The calvaria is intact. No evidence of skull fracture. CONCLUSION: Negative noncontrast head CT. Romulo Pratt MD on March 04, 2017 at 0:28 Board Certified Radiologist. This report was verified electronically.
--- NOTE | 2017-03-04 00:34 | RADRPT ---
EXAM DATE/TIME: 03/03/2017 23:53 [facility] COMPARISON: No previous studies available for comparison. INDICATIONS : Trauma; fall. RADIATION DOSE: 42.86 CTDIvol (mGy) MEDICAL HISTORY : Hypertension. Cardiovascular disease Chronic obstructive pulmonary disease.Diabetes SURGICAL HISTORY : None. ENCOUNTER: Initial ACUITY: 1 day PAIN SCALE: 8/10 LOCATION: neck TECHNIQUE: Volumetric scanning of the cervical spine was performed. Multiplanar reconstructions in the sagittal, coronal and oblique axial planes were performed. Using automated exposure control and adjustment o f the mA and/or kV according to patient size, radiation dose was kept as low as reasonably achievable to obtain optimal diagnostic quality images. DICOM format image data is available electronically f or review and comparison. FINDINGS: There is moderate uncovertebral and facet osteoarthritis essentially throughout. 2-3 mm of degenerati ve appearing anterolisthesis seen at C3/C4, C4/C5 and C5/C6. No fracture or acute appearing malalignm ent. Vertebral bodies have normal height. There is multilevel disc space narrowing, moderate at C6/C7 and mild at C4/C5, C5/C6 and C7/T1. Moder ate osteoarthritis seen anteriorly at C1/C2. Paravertebral soft tissues are normal. CONCLUSION: No fracture or acute malalignment of the cervical spine. Multilevel degenerative changes as above. Romulo Pratt MD on March 04, 2017 at 0:30 Board Certified Radiologist. This report was verified electronically.
[2017-03-04] MEDS ORDERED: NORC5TAB PO (00:48)
[2017-03-04 01:44] VITALS: RESP 18; O2SAT 98
== END 2017-03-04 01:45 | disposition home or self-care (01) ==
LOC: NEPD 23:00
DX: S42.91XA Fracture of right shoulder girdle, part unspecified, initial encounter for closed fracture (principal); S00.81XA Abrasion of other part of head, initial encounter; W19.XXXA Unspecified fall, initial encounter; Z23 Encounter for immunization
CPT/HCPCS: 29240; 70450; 72125; 73030; 90471; 90714

== ENCOUNTER → 2017-03-24 | Outpatient (CLI) | payer MEDICARE, OTHER ==
[~2017-03-24] MED LIST changes: -ALFU10TA2 PO; -AMLO5TAB2 PO; -ASPI81TA23 PO; -B COTAB3 PO; -CHOL5000 PO; +CIAL5TAB PO; -COLA100C3 PO; +COZA50TA PO; -CRAN500C2 PO; +D200CAP PO; +DULC10SU3 RECTAL; +DULO1CAP2 PO; +ENOX40P SQ; -FIBE625T10 PO; +GABA300C5 PO; +HYDR-3516 PO; +IPRASOL INH; +MAPA500T13 PO; +META48.53 PO; +MILKSUS PO; +MULT-65 PO; -MULT1TAB PO; +NORC5TAB PO; +PROC1CRE TOPICAL; +PSYL0.5213 PO; +PYRI100T PO; -SAW450CA2 PO; +SENN1TAB PO; +TRAM50TA PO; +TYLE325T PO; +UMEC1AER INH; +VENTAER INH; +ZOLP5TAB3 PO
[2017-03-24 08:58] LABS: AUTOMATED NEUTROPHIL # 7.1 TH/MM3 (1.8-7.7); BASOPHIL # 0.1 TH/MM3 (0-0.2); BASOPHIL % 0.8 % (0.0-2.0); EOSINOPHIL # 0.6 TH/MM3 (0-0.4); EOSINOPHIL % 6.2 % (0.0-4.0); HEMATOCRIT 35.5 % (39.0-51.0); HEMO FLAGS DIFF FINAL; LYMPH % 14.9 % (9.0-44.0); LYMPHOCYTE # 1.5 TH/MM3 (1.0-4.8); MEAN CELL VOLUME 92.9 FL (80.0-100.0); MEAN CORPUSCULAR HGB CONC 33.4 % (32.0-36.0); MONO % 7.4 % (0.0-8.0); NEUT % 70.7 % (16.0-70.0); PLATELET COUNT 320 TH/MM3 (150-450); RED BLOOD COUNT 3.82 MIL/MM3 (4.50-5.90); RED CELL DISTRIBUTION WIDTH 14.9 % (11.6-17.2)
[2017-03-24 09:00] LABS: BLOOD, URINE NEG (NEG); GLUCOSE,URINE NEG (NEG); HYALINE CAST, URINE 3 /lpf (RARE); KETONE, URINE NEG (NEG); MUCUS URINE FEW /lpf (OCC); NITRITE,URINE NEG (NEG); SQUAMOUS EPITHELIAL CELL URINE <1 /hpf (0-5); URINE COLOR LIGHT-YELLOW (YELLW/STRAW)
[2017-03-24 09:05] LABS: COMMENT (UR) CULT NOT INDICATED; CULTURE IF INDICATED CULT NOT INDICATED
[2017-03-24 09:23] LABS: ANION GAP 6 MEQ/L (5-15); AST (GOT) 33 U/L (15-37); BICARBONATE 29.1 MEQ/L (21.0-32.0); BLOOD UREA NITROGEN 21 MG/DL (7-18); CHLORIDE 104 MEQ/L (98-107); GLOMERULAR FILTRATION RATE 46 ML/MIN (>89); GLUCOSE,FASTING 138 MG/DL (74-99); POTASSIUM 4.7 MEQ/L (3.5-5.1); SODIUM (NA) 139 MEQ/L (136-145)
[2017-03-24 09:25] LABS: ALT (GPT) 45 U/L (12-78)
[2017-03-24 09:27] LABS: ALKALINE PHOSPHATASE 136 U/L (45-117); TOTAL BILIRUBIN ADULT 0.5 MG/DL (0.2-1.0)
--- NOTE | 2017-03-24 14:53 | EKG ---
Date Performed: 03/24/2017 Time Performed: 08:45:22 PTAGE: 71 years EKG: Sinus bradycardia Possible inferior infarct - age undetermined Lateral ST-T changes may be due to myocardial ischemia Abnormal ECG PREVIOUS TRACING : 05/18/2016 17.09 DOCTOR: Michael Claire Interpretating Date/Time 03/24/2017 14:52:26
[2017-03-24 16:28] LABS: HEMOGLOBIN A1a 1.3 %; HEMOGLOBIN A1b 2.1 %; HEMOGLOBIN Ao 82.1 %; HEMOGLOBIN LA1C 2.3 %; HEMOGLOBIN P3 4.1 %
--- NOTE | 2017-03-26 08:16 | MH ---
cc: MARY SIDDIQUI DATE OF ADMISSION 03/24/2017 DATE OF 1945 ADMITTING DIAGNOSIS Four-part fracture surgical neck right humerus. PRESENT HISTORY Patient fell on 03/02/2017 at a restaurant resulting in this fracture for which he was seen in [facility] who evaluated him, x-rayed him, and put him in a sling. The patient was seen in the office on March 12, 2017. He came in without a sling indicating that he lives alone and could not get it on and off. At any rate, he was initially treated nonoperatively with a sling and swath, but subsequent x-rays revealed further displacement and indeed a fracture through the head of the humerus indicating surgical intervention in the formal reverse shoulder arthroplasty. The nature of the problem, nature, treatment alternatives of treatment and potential risks, hazards, complications have been discussed in detail with the patient. Informed consent obtained. No guarantees made. We have particularly talked about the reverse shoulder itself and why it is needed, etc. Post hospital and postoperative course has been discussed. PERSONAL/SOCIAL HISTORY He does not smoke. He does not drink. He does not exercise. PAST MEDICAL HISTORY 1. Diabetes 2. Fainting spells 3. Heart disease for which he has had heart bypass done. 4. High blood pressure 5. Low back pain 6. Heart bypass done in 2011. 7. He most recently saw his computer systems consultant, Dr. Emery about two months ago. CURRENT MEDICATIONS 1. Gabapentin 2. Ambien 3. Lasix 4. Pantoprazole 5. Metoprolol 6. Losartan 7. Atorvastatin 8. Duloxetine 9. Oral diabetic drug Anoro/Ellipta 62.5 x 25. 10. Cialis p.r.n. ALLERGIES None PHYSICAL EXAM Physical examination reveals a tall significantly overweight white male with a height of 5 foot 9 inches and weight is 250 pounds. GENERAL: He is alert and oriented. HEAD: Normocephalic. EYES: Pupils react to light. FACE: Symmetrical. HEART: Regular rhythm. No murmurs. LUNGS: Clear to auscultation. ABDOMEN: Soft and supple. EXTREMITIES: The right arm is in a sling. He has good radial pulse. No obvious neurovascular deficit distally. He has ecchymosis and some swelling around the right shoulder. No skin problems noted. PREOPERATIVE WORK UP The preoperative workup shows some abnormalities including some diminished renal function, borderline low albumin and some elevation of alkaline phosphatase. CBC shows borderline low hemoglobin/hematocrit. EKG shows changes and I called Dr. Emery yesterday and discussed with him and a Dr. Emery indicated that the patient had similar changes on the EKG in the past, but he did not see a contraindication to surgery. I have discussed in detail with the patient his post hospital course including need to go to an extended care facility for a few days. His brother is coming to [facility] Wednesday and at that point we can determine when he can leave the residential facility, etc. MD KIM Cope/VONNIE /7:46 AM /7:58 AM
== END ==
LOC: CPRE 08:15
PROVIDERS: ATTEND Orthopaedic Surgery
DX: Z01.810 Encounter for preprocedural cardiovascular examination (principal); Z01.812 Encounter for preprocedural laboratory examination; E11.9 Type 2 diabetes mellitus without complications; R94.31 Abnormal electrocardiogram [ECG] [EKG]; S42.241A 4-part fracture of surgical neck of right humerus, initial encounter for closed fracture; W19.XXXA Unspecified fall, initial encounter; Y92.511 Restaurant or cafe as the place of occurrence of the external cause
CPT/HCPCS: 36415; 80053; 81001; 83036; 85025; 93005

== ENCOUNTER 2017-03-26 09:43 | Inpatient (IN) | payer MEDICARE, OTHER ==
[~2017-03-26] VITALS: Ht 175.3 cm; Wt 121.4 kg
[~2017-03-26 09:43] MED LIST changes: -ADVA100A INH; -DULC10SU3 RECTAL; -ENOX40P SQ; -GABA600T PO; -HYDR-3516 PO; -IPRASOL INH; -LOSA50TA PO; -META48.53 PO; -MILKSUS PO; -NORC5TAB PO; -PROC1CRE TOPICAL; -SENN1TAB PO; -TYLE325T PO; -ZOLP5TAB3 PO; -[UNRECOGNIZED DRUG - OTHER] PO
[2017-03-26] MEDS ORDERED: POVIDONE IODINE 5% (ANTISEPSIS KIT) 4 APPLICATIONS EACH NARE PRN (10:30)
[2017-03-26] MEDS ORDERED: LACTATED RINGER'S 1000 ML IV PRN (10:30)
[2017-03-26] MEDS ORDERED: INSULIN HUMAN REGULAR 1,000 UNITS/10 ML VIAL SQ PRN (10:30)
[2017-03-26] MEDS ORDERED: CHLORHEXIDINE GLUCONATE 2 % 1 PACK (2 CLOTHS) TOPICAL PRN (10:30)
[2017-03-26] MEDS ORDERED: SODIUM CHLORID 0.9% 500 ML IV PRN (10:30)
[2017-03-26] MEDS ORDERED: METOPROLOL TARTRATE 25 MG TAB PO PRN (10:30)
[2017-03-26] MEDS ORDERED: POVIDONE IODINE 7.5% SCRUB 118 ML BOTTLE TOPICAL SCH (12:00)
[2017-03-26] MEDS ORDERED: VANCOMYCIN 1250 MG/NS 250 ML (for 70-84 kg) IV SCH ×2 (12:00)
[2017-03-26] MEDS ORDERED: ceFAZolin 2 GM PREMIX 50 ML IV SCH (12:00)
[2017-03-26] MEDS ORDERED: GENTAMICIN SULFATE 80 MG/2 ML VIAL ONE (12:04)
[2017-03-26] MEDS ORDERED: TOBRAMYCIN 1200 MG VIAL (ortho-sterile core) ONE (12:09)
[2017-03-26] MEDS ORDERED: ceFAZolin INJ 1,000 MG VIAL IV ONE (17:05)
[2017-03-26 17:09] LABS: HEMATOCRIT 31.2 % (39.0-51.0); REVIEW FLAG FINAL
[2017-03-26] MEDS ORDERED: GLUCAGON 1 MG/ML VIAL OTHER PRN (17:45)
[2017-03-26] MEDS ORDERED: ZOLPIDEM TARTRATE 5 MG TAB PO PRN (17:45)
[2017-03-26] MEDS ORDERED: ONDANSETRON HCL 4 MG/2 ML VIAL IVP PRN (17:45)
[2017-03-26] MEDS ORDERED: DEXTROSE 50% IN WATER 50 ML VIAL(D50) IV PUSH PRN (17:45)
[2017-03-26] MEDS ORDERED: Post-op Orders (for Pharmacy) XX ONE (17:45)
[2017-03-26] MEDS ORDERED: NALOXONE HCL 0.4 MG/ML AMP IV PUSH PRN (17:45)
[2017-03-26] MEDS ORDERED: PROMETHAZINE HCL 25 MG TAB PO PRN (17:45)
[2017-03-26] MEDS ORDERED: ALBUTEROL SULFATE 90 MCG/ACT HFA 8 GM INHALER INH PRN (17:45)
[2017-03-26] MEDS ORDERED: diphenhydrAMINE HCL 50 MG/ML VIAL IV PUSH PRN (17:45)
[2017-03-26] MEDS: GABAPENTIN 300 MG CAP PO SCH ×2 (18:00→21:45)
[2017-03-26] MEDS ORDERED: *morphine SULFATE 8 MG/ML PERIprocedure ONLY ONE (18:22)
[2017-03-26] MEDS ORDERED: ACETAMINOPHEN 1000 MG/100 ML 100 ML IV ONE (18:22)
[2017-03-26] MEDS ORDERED: KETOROLAC TROMETHAMINE 30 MG/ML (IVP) VIAL ONE (18:30)
--- NOTE | 2017-03-26 18:43 | RADRPT ---
EXAM DATE/TIME: 03/26/2017 16:11 [facility] COMPARISON: No previous studies available for comparison. INDICATIONS : Check intraoperative placement of total right shoulder. MEDICAL HISTORY : Hypertension. Cardiovascular disease. Chronic obstructive pulmonary disease. Diabetes SURGICAL HISTORY : None. ENCOUNTER: Initial ACUITY: 1 day PAIN SCORE: Non-responsive. LOCATION: Right Shoulder. FINDINGS: Examination of the right shoulder demonstrates complete replacement of the right shoulder with ball a nd socket joint. No complications identified. CONCLUSION: 1. Complete right shoulder joint replacement. Getachew Perez MD on March 26, 2017 at 18:40 Board Certified Radiologist. This report was verified electronically.
[2017-03-26 19:10] VITALS: BP 123/66; PULSE 101; RESP 18; TEMP 96; O2SAT 92
--- NOTE | 2017-03-26 19:14 | RADRPT ---
EXAM DATE/TIME: 03/26/2017 18:26 [facility] COMPARISON: No previous studies available for comparison. INDICATIONS : Post op right shoulder surgery. MEDICAL HISTORY : Hypertension. Cardiovascular disease. Chronic obstructive pulmonary disease. Diabetes SURGICAL HISTORY : None. ENCOUNTER: Subsequent ACUITY: 1 day PAIN SCORE: 9/10 LOCATION: Right Shoulder. FINDINGS: Two view examination of the right shoulder demonstrates postoperative right shoulder joint with place ment with ball and socket. No dislocation. CONCLUSION: 1. Postoperative right shoulder joint replacement with ball and socket joint. Getachew Perez MD on March 26, 2017 at 19:11 Board Certified Radiologist. This report was verified electronically.
[2017-03-26] MEDS: SODIUM CHLOR 0.9% 1000 ML INJ 1,000 ML IV SCH ×2 (20:00→23:44)
[2017-03-26] MEDS ORDERED: DO NOT ADM ANY ANTICOAGULANT DRUGS PRN (20:30)
[2017-03-26] MEDS: INSULIN NovoLIN REGULAR SUPPLEMENTAL SCALE SQ SCH (21:00)
[2017-03-26] MEDS: DULoxetine HCl DR 30 MG CAP PO SCH ×2 (21:00→21:45)
[2017-03-26] MEDS: ZOLPIDEM TARTRATE 10 MG TAB PO SCH (21:00)
--- NOTE | 2017-03-26 21:30 | MP ---
cc: MARY MANNING M.D. DATE OF SURGERY: 03/26/2017 PREOPERATIVE DIAGNOSIS: Four part displaced fracture, neck of the right humerus. POSTOPERATIVE DIAGNOSIS: Three point displaced fracture, neck of the right humerus. OPERATIVE PROCEDURE; 1. Reverse Shoulder arthroplasty right shoulder using DJO components 36mm Neutral glenosphere 10 mm stem with std 36 mm insert 2. open reduction -internal fixation Greater and lesser tuberosity fractures 3. Autogenous bone graft SURGEON: Mary Manning MD. ANESTHESIA: General. TECHNIQUE After induction of general anesthesia the patient placed in beach-chair position on a Guille table propped up on a triangular support. The patient was well secured operating table lower extremities properly positioned. Head/Neck properly position. Right shoulder right upper extremity thoroughly prepped with alcohol and ChloraPrep and draped in routine fashion including adherent Ioban drapes. A deltopectoral incision made deepened through subcutaneous tissue and the deltopectoral interval was identified cephalic vein was protected and the interval developed. The patient is deltoid is quite tight and there is quite a bit of healing already at the fracture site making things difficult making visualization difficult, resulting in prolonged operative time. The pectoralis major was released at its tendon about 1 cm. Biceps tendon sheath was identified and opened and the biceps tendon was almost ruptured at the fracture site. We did detached in here and excised the proximal part later. Biceps tendon was pulled and tenodesis carried out with #2 FiberWire through the pectoralis major. The residual tendon was discarded. The fracture site was now opened up and subscapularis was palpated it appears that there is no separate lesser tuberosity fragment. Indeed there are three major fragments, one is the shaft, one is the greater tuberosity with half the head, and the other is the lesser tuberosity with half the head. An oscillating saw was used to osteotomized the lesser tuberosity and then the residual head was removed. Similarly the oscillating saw was used to separate the residual head from the greater tuberosity fragment and at that was discarded. The traction suture placed in the lesser tuberosity. We now placed three, #5 Ethilon sutures through the infraspinatus tendon around the greater tuberosity. A double #2 FiberWire was also passed through it and two #5 fiber tape was passed through. Two #2 FiberWire passed through the supraspinatus attachment to the greater tuberosity. These were all held appropriately. We now had to clear out and do soft tissue dissection to expose the glenoid and care taken to stay away from the axillary nerve. With good exposure the guidewire was introduced which was in good position followed by the time and the reamer and then the baseplate screwed in a nice and tight with four locking screws. A 32 mm least a 36-mm head was then impacted in place and found to be secure and a locking screw placed. We now expose the shaft. The cancellus bone from the shaft was removed to be used later, reaming and broaching was carried out to 10 mm. Trial reduction carried out with a standard 36-mm insert and there is good position alignment, stability. The joint was dislocated. We now made to drill holes on either side of the bicipital groove and the vertical sutures were passed through it. The one of the fiber tapes was passed through the posterior hole behind the implant. The canal was lavaged and suctioned out and dried. The simplex cement was introduced into the shaft after a cement restricter was used, followed by cancellus bone graft to pushing the cement down and then impaction of the implant in proper retroversion and seating on the medial calcar. The excess cement was all removed and then the joint was reduced and found to be stable. We now had to start the tedious process of repairing the tuberosities. We mainly used the three #5 Ethilon sutures and one of the fiber tapes to secure the greater tuberosity to the lesser tuberosity. Prior to this we used the double #2 FiberWire that been passed through the posterior fin of the prosthesis in the form of a racking stitches to get a initial reduction. One of the fiber tapes was passed to the medial hole and this was passed through the lesser tuberosity and tied. All the sutures of the lesser tuberosity were through the subscapularis tendon. The vertical suture was the last to be tied. There is good range of motion with no instability. Bone graft was placed in the defect between the anterior shaft of the greater tuberosity to fill the space up to facilitate healing. The wound was irrigated with saline solution. The patient probably sustained 400 mL. Blood loss. No need was seen for the drain because there is good hemostasis. The deltopectoral groove closed with #2 quill subcutaneous tissue with 2-0 Vicryl, skin with 3-0 subcuticular sutures and Steri-Strips. A super absorbent dressing was placed sling and swath applied after which the anesthesiologist was doing the scalene block and will also straight catheter. The patient tolerated the procedure well, was transferred to Recovery Room well, complications, none. Postoperative condition is satisfactory. PROGNOSIS Guarded to good. We did do a C-arm fluoroscopic imaging in the AP view after we did the trial reduction and everything looked good. MD KIM Cope/chad /5:50 PM /8:38 PM [email or web address]
[2017-03-26] MEDS: METOPROLOL TARTRATE 25 MG TAB PO SCH (21:45)
[2017-03-26] MEDS: ATORVASTATIN 40 MG TAB PO SCH (21:46)
[2017-03-26] MEDS: ceFAZolin 2 GM PREMIX 50 ML IV SCH (21:46)
[2017-03-26] MEDS: MORPHINE SULFATE 2 MG/ML INJ IV PRN (21:49)
[2017-03-27] VITALS: BP 111/69; PULSE 95; RESP 17; TEMP 96.9; O2SAT 93
[2017-03-27] MEDS ORDERED: VANCOMYCIN INJ 1,000 MG in SODIUM CHLOR 0.9% 250 ML INJ 250 ML IV SCH (01:00)
[2017-03-27 04:00] VITALS: BP 132/57; PULSE 79; RESP 16; TEMP 97.5; O2SAT 98
[2017-03-27] MEDS: ceFAZolin 2 GM PREMIX 50 ML IV SCH (04:16)
[2017-03-27 04:44] LABS: HEMATOCRIT 33.4 % (39.0-51.0); REVIEW FLAG FINAL
[2017-03-27 05:05] LABS: BICARBONATE 24.2 MEQ/L (21.0-32.0); POTASSIUM 5.9 MEQ/L (3.5-5.1)
[2017-03-27] MEDS: SODIUM CHLOR 0.9% 1000 ML INJ 1,000 ML IV SCH ×3 (05:40→20:00)
[2017-03-27] MEDS: INSULIN NovoLIN REGULAR SUPPLEMENTAL SCALE SQ SCH ×4 (08:00→21:00)
[2017-03-27 08:05] VITALS: BP 124/55; PULSE 84; RESP 18; TEMP 96.5; O2SAT 95
[2017-03-27] MEDS: GABAPENTIN 300 MG CAP PO SCH ×2 (08:32→19:49)
[2017-03-27] MEDS: DULoxetine HCl DR 30 MG CAP PO SCH ×2 (08:32→19:48)
[2017-03-27] MEDS: CHOLECALCIFEROL (VIT D3) 1000 UNIT TAB PO SCH (08:32)
[2017-03-27] MEDS: LOSARTAN 50 MG TAB PO SCH (08:33)
[2017-03-27] MEDS: MULTIVITAMIN TAB PO SCH (08:33)
[2017-03-27] MEDS: METOPROLOL TARTRATE 25 MG TAB PO SCH ×2 (08:33→21:00)
[2017-03-27] MEDS: UMECLIDINIUM 62.5 MCG/VILANTEROL 25 MCG INHALER INH SCH (08:33)
[2017-03-27] MEDS: PYRIDOXINE HCL 50 MG TAB PO SCH (08:33)
[2017-03-27] MEDS: PANTOPRAZOLE SOD 20 MG DELAYED RELEASE TAB PO SCH (08:33)
[2017-03-27] MEDS: FUROSEMIDE 20 MG TAB PO SCH (08:33)
[2017-03-27] MEDS ORDERED: SODIUM POLYSTYRENE SULFONATE SUSP 15 GM/60 ML CUP PO ONE (09:00)
--- NOTE | 2017-03-27 09:41 | PD.CONS ---
HPI Service [facility] Hospitalists Consult Requested By Doctor Cory Manning Reason for Consult Medical management. Primary Care Physician Stacie Rollins M.D. Diagnoses: History of Present Illness This is a pleasant 71 y/o male larissa admitted on 03/24/17 with status post fall while he was at a local restaurant initially treated non operatively with a sling and swath but subsequent x rays revealed further displacement and indeed a fracture, with diagnosis of Three point displaced fracture, Neck of the right Humerus, Status post Reverse Right Shoulder Arthroplasty with Internal fixation of Tuberosity fracture. 03/26/17 as we know he has CAD status post Aortic Valve replacement, CABG x 2, has a #21 [facility] Bioprosthesis, Obesity, Dm II, Hypertension, Hyperlipidemia, Rheumatic Fever, stable in his bedroom, no complaint. Review of Systems Constitutional: DENIES: Fever, Chills, Change in appetite Endocrine: DENIES: Heat/cold intolerance Eyes: DENIES: Blurred vision, Eye pain Except as stated in HPI: all other systems reviewed are Neg Past Family Social History Allergies: Coded Allergies: lisinopril (Unverified Allergy, Unknown, 03/26/17) angioedema Past Medical History Hypertension Hyperlipidemia Rheumatic Fever CAD Obesity DM II Peripheral Neuropathy Past Surgical History CABG x [address] [facility] 21 Bioprosthesis July 2011 Cataract left eye 2012 Reported Medications Reported Meds & Active Scripts Active Reported Ventolin Hfa 18 GM Inh (Albuterol Sulfate) 90 Mcg/Act Aer 2 Puff INH Q4H PRN D3 Super Strength (Cholecalciferol) 2,000 Unit Cap 2,000 Units PO DAILY Vitamin B-6 (Pyridoxine HCl) 100 Mg Tab 100 Mg PO DAILY Daily Fiber (Psyllium Husk) 0.52 Gram Capsule 2 Cap PO HS Multi-Vitamin Daily (Multiple Vitamin) 1 Tab Tab 1 Tab PO DAILY Cialis (Tadalafil) 5 Mg Tab 5 Mg PO HS Do not exceed 1 dose/day. Ambien (Zolpidem Tartrate) 10 Mg Tab 0.5-1 Tab PO HS Mapap Extra Strength (Acetaminophen) 500 Mg Tab 500 Mg PO Q12HR Cozaar (Losartan Potassium) 50 Mg Tab 50 Mg PO DAILY Tramadol (Tramadol HCl) 50 Mg Tab 1-2 Tab PO Q12HR Gabapentin 300 Mg Cap 900 Mg PO TID Anoro Ellipta Inh (Umeclidinium/Vilanterol) 62.5-25 Mcg/Act Aero 1 Puff INH DAILY Duloxetine DR (Duloxetine HCl) 30 Mg Capdr 30 Mg PO BID Furosemide 20 Mg Tab 20 Mg PO DAILY Pantoprazole (Pantoprazole Sodium) 20 Mg Tab 20 Mg PO DAILY Metoprolol Tartrate 25 Mg Tab 25 Mg PO BID Atorvastatin (Atorvastatin Calcium) 40 Mg Tab 40 Mg PO HS Active Ordered Medications Current Medications Medications (Trade) Dose Ordered Sig/Nicholas Route Start Time Stop Time Status Last Admin Sodium Chloride 1,000 ml @ 125 mls/hr Q8H IV 03/26/17 20:00 03/26/17 23:44 (Lovenox Inj) 40 mg Q24H SQ 03/27/17 17:00 (Morphine Inj) 4 mg Q3H PRN IV 03/26/17 19:45 03/26/17 21:49 (Bauxite 5-325 Mg) 1 tab Q4H PRN PO 03/26/17 17:45 (Bauxite 5-325 Mg) 2 tab Q4H PRN PO 03/26/17 17:45 (Toradol Inj) 15 mg Q8H IVP 03/27/17 10:00 03/29/17 02:01 03/27/17 08:32 (Phenergan) 25 mg Q4H PRN PO 03/26/17 17:45 (Zofran Inj) 4 mg Q6H PRN IVP 03/26/17 17:45 (Colace) 100 mg BID PO 03/27/17 21:00 (Milk Of Magnesia Liq) 30 ml DAILY PRN PO 03/26/17 17:45 (Narcan Inj) 0.4 mg UNSCH PRN IV PUSH 03/26/17 17:45 (Benadryl Inj) 25 mg Q6H PRN IV PUSH 03/26/17 17:45 (Ofirmev 1000 Mg/ 100 ml Inj) 1,000 mg Q12H IV 03/27/17 12:00 03/29/17 08:00 (NovoLIN R SUPPLEMENTAL SCALE) 1 ACHS SQ 03/26/17 21:00 (D50w (Vial) Inj) 50 ml UNSCH PRN IV PUSH 03/26/17 17:45 (Glucagon Inj) 1 mg UNSCH PRN OTHER 03/26/17 17:45 (Proair Hfa Inh) 2 puff Q4H PRN INH 03/26/17 17:45 (Lipitor) 40 mg HS PO 03/26/17 21:00 03/26/17 21:46 (Vitamin D3) 2,000 units DAILY PO 03/27/17 09:00 03/27/17 08:32 (Cymbalta Dr) 30 mg BID PO 03/26/17 21:00 03/27/17 08:32 (Lasix) 20 mg DAILY PO 03/27/17 09:00 03/27/17 08:33 (Neurontin) 900 mg TID PO 03/26/17 18:00 03/27/17 08:32 (Cozaar) 50 mg DAILY PO 03/27/17 09:00 03/27/17 08:33 (Lopressor) 25 mg BID PO 03/26/17 21:00 03/27/17 08:33 (Protonix) 20 mg DAILY PO 03/27/17 09:00 03/27/17 08:33 (Vitamin B6) 100 mg DAILY PO 03/27/17 09:00 03/27/17 08:33 (Ambien) 10 mg HS PO 03/26/17 21:00 (Theragran) 1 tab DAILY PO 03/27/17 09:00 03/27/17 08:33 Miscellaneous Information ALL NURSING DEPARTME... UNSCH PRN .XX 03/26/17 20:30 03/27/17 20:29 Family History Mother age 80 with Stomach cancer Brother with CAD Social History Lives alone was Tobacco dependent for 45 years 2 to three packs daily until July 2011 denies other toxic habits. Physical Exam Vital Signs Vital Signs Date Time Temp Pulse Resp B/P (MAP) Pulse Ox O2 Delivery O2 Flow Rate FiO2 03/27/17 08:05 96.5 84 18 124/55 (78) 95 03/27/17 04:00 97.5 79 16 132/57 (82) 98 03/27/17 00:00 96.9 95 17 111/69 (83) 93 03/26/17 19:10 96.0 101 18 123/66 (85) 92 03/26/17 19:00 104 18 134/61 (85) 91 03/26/17 18:45 105 18 142/64 (90) 92 03/26/17 18:36 Nasal Cannula 3.00 03/26/17 18:30 106 18 156/69 (98) 93 03/26/17 18:15 98.6 109 18 144/91 (108) 94 03/26/17 11:20 98.6 68 18 165/72 (103) 96 Physical Exam GENERAL: Obesity, no acute distress. SKIN: No rashes, ecchymoses or lesions. Cool and dry. HEAD: Atraumatic. Normocephalic. EYES: Pupils equal round and reactive. ENT: Nose without bleeding, purulent drainage or septal hematoma. NECK: Trachea midline. No JVD or lymphadenopathy. Supple, nontender, no meningeal signs. CARDIOVASCULAR: Regular rate and rhythm without murmurs, gallops, or rubs. RESPIRATORY: Clear to auscultation. Breath sounds equal bilaterally. GASTROINTESTINAL: Abdomen soft, non-tender, nondistended. MUSCULOSKELETAL: Right arm with sling in place. NEUROLOGICAL: Awake and alert. Cranial nerves II through XII intact. Laboratory Laboratory Tests Test 03/26/17 16:52 03/27/17 04:18 Hemoglobin 10.2 10.6 Hematocrit 31.2 33.4 Blood Urea Nitrogen 28 Creatinine 1.77 Random Glucose 136 Calcium Level 7.7 Sodium Level 135 Potassium Level 5.9 Chloride Level 105 Carbon Dioxide Level 24.2 Anion Gap 6 Estimat Glomerular Filtration Rate 38 Result Diagram: 03/27/17 0418 03/27/17 0418 Imaging Last Impressions Shoulder X-Ray 03/26/17 0000 Signed Impressions: Service Date/Time: Sunday, March 26, 2017 16:11 - CONCLUSION: 1. Complete right shoulder joint replacement. Getachew Perez MD Assessment and Plan Assessment and Plan 1. with diagnosis of Three point displaced fracture, Neck of the right Humerus, Status post Reverse Right Shoulder Arthroplasty with Internal fixation of Tuberosity fracture. 03/26/17. continue management by his primary Orthopedic pals specialist 2. Hypertension controlled 3. Hyperlipidemia continue Home medicines. 4. Rheumatic Fever by history 5. CAD by history status post Aortic Valve replacement 6. Obesity strongly recommended Diet and exercise as outpatient 7. DM II continue sliding scale. 8. Peripheral Neuropathy continue gabapentin 9. CKD III stable at baseline with Hyperkalemia giving Kayexalate and following. DVT prophylaxis with Lovenox GI with PPIs. clear for discharge by Hospitalist. Code Status Full Code Discussed Condition With Patient and nurse. Ghulam Dietrihc MD Mar 27, 2017 9:41 am
[2017-03-27] MEDS ORDERED: KETOROLAC TROMETHAMINE 30 MG/ML (IVP) VIAL IVP SCH (10:00)
[2017-03-27] MEDS: ACETAMINOPHEN 1000 MG/100 ML VIAL IV SCH (11:41)
[2017-03-27 12:00] VITALS: BP 99/46; PULSE 68; RESP 18; TEMP 96.4; O2SAT 93
--- NOTE | 2017-03-27 12:06 | PD.ORT.PN ---
Subjective Post Op Day #: 1 Pain Scale: 2 Subjective Remarks doing OK Range of Motion Has AROM elbow and wrist Objective Vitals Last 72 hours Impressions Shoulder X-Ray 03/26/17 0000 Signed Impressions: Service Date/Time: Sunday, March 26, 2017 16:11 - CONCLUSION: 1. Complete right shoulder joint replacement. Getachew Perez MD Shoulder X-Ray 03/26/17 0000 Signed Impressions: Service Date/Time: Sunday, March 26, 2017 18:26 - CONCLUSION: 1. Postoperative right shoulder joint replacement with ball and socket joint. Getachew Perez MD Vital Signs Date Time Temp Pulse Resp B/P (MAP) Pulse Ox O2 Delivery O2 Flow Rate FiO2 03/27/17 09:32 16 03/27/17 08:05 96.5 84 18 124/55 (78) 95 03/27/17 04:00 97.5 79 16 132/57 (82) 98 03/27/17 00:00 96.9 95 17 111/69 (83) 93 03/26/17 19:10 96.0 101 18 123/66 (85) 92 03/26/17 19:00 104 18 134/61 (85) 91 03/26/17 18:45 105 18 142/64 (90) 92 03/26/17 18:36 Nasal Cannula 3.00 03/26/17 18:30 106 18 156/69 (98) 93 03/26/17 18:15 98.6 109 18 144/91 (108) 94 I/O 03/26/17 03/26/17 03/26/17 03/27/17 03/27/17 03/27/17 07:00 15:00 23:00 07:00 15:00 23:00 Intake Total 2640 ml 1457 ml Output Total 1100 ml 325 ml Balance 1540 ml 1132 ml Intake Oral 240 ml 480 ml IV Total 100 ml 977 ml Other 2300 ml Output Urine Total 400 ml 325 ml Estimated Blood Loss 700 ml Result Diagram: 03/27/17 0418 03/27/17 041 Objective Remarks Sirring up in chair Had to have fohley put in last night. Moves warm fingers and thumb well Hard to palpate radial pulse same as preop Assessment & Plan Ortho Post Op Day #: 1 Problem List: Assessment and Plan Dressings dry, no need to change Flomax 0.4 mg bid Try to DC catheter today, after flomax and we get him walking, discussed with nurse and PT Nurse will check 2 sat right hand Cory Manning MD Mar 27, 2017 12:06
[2017-03-27] MEDS: TAMSULOSIN HCL 0.4 MG CAP PO SCH ×2 (14:08→19:47)
[2017-03-27] MEDS: ACETAMINOPHEN/HYDROcodone 325 MG/5 MG TAB PO PRN ×2 (15:45→19:46)
[2017-03-27] MEDS: ENOXAPARIN SODIUM 40 MG/0.4 ML SYRINGE SQ SCH (15:46)
[2017-03-27 16:00] VITALS: BP 99/57; PULSE 66; RESP 18; TEMP 96; O2SAT 96
[2017-03-27] MEDS: ATORVASTATIN 40 MG TAB PO SCH (19:48)
[2017-03-27] MEDS: DOCUSATE SODIUM 100 MG CAP PO SCH (19:48)
[2017-03-27 20:25] VITALS: BP 105/49; PULSE 73; RESP 18; TEMP 97.2; O2SAT 94
[2017-03-27] MEDS: MORPHINE SULFATE 2 MG/ML INJ IV PRN (23:36)
[2017-03-28 00:11] VITALS: BP 120/50; PULSE 77; RESP 18; TEMP 96.7; O2SAT 95
[2017-03-28] MEDS: ACETAMINOPHEN 1000 MG/100 ML VIAL IV SCH ×2 (00:20→12:00)
[2017-03-28] MEDS: ZOLPIDEM TARTRATE 10 MG TAB PO SCH ×2 (00:32→20:49)
[2017-03-28] MEDS: SODIUM CHLOR 0.9% 1000 ML INJ 1,000 ML IV SCH ×3 (04:00→20:00)
[2017-03-28] MEDS: ACETAMINOPHEN/HYDROcodone 325 MG/5 MG TAB PO PRN ×4 (06:45→20:49)
[2017-03-28 07:55] VITALS: BP 116/53; PULSE 104; RESP 18; TEMP 98.4; O2SAT 94
[2017-03-28] MEDS: INSULIN NovoLIN REGULAR SUPPLEMENTAL SCALE SQ SCH ×4 (08:00→21:00)
[2017-03-28] MEDS: FUROSEMIDE 20 MG TAB PO SCH (08:02)
[2017-03-28] MEDS: UMECLIDINIUM 62.5 MCG/VILANTEROL 25 MCG INHALER INH SCH (08:02)
[2017-03-28] MEDS: MULTIVITAMIN TAB PO SCH (08:02)
[2017-03-28] MEDS: TAMSULOSIN HCL 0.4 MG CAP PO SCH ×2 (08:02→20:19)
[2017-03-28] MEDS: PANTOPRAZOLE SOD 20 MG DELAYED RELEASE TAB PO SCH (08:02)
[2017-03-28] MEDS: METOPROLOL TARTRATE 25 MG TAB PO SCH ×2 (08:02→20:19)
[2017-03-28] MEDS: GABAPENTIN 300 MG CAP PO SCH ×2 (08:02→20:19)
[2017-03-28] MEDS: DULoxetine HCl DR 30 MG CAP PO SCH ×2 (08:02→20:19)
[2017-03-28] MEDS: DOCUSATE SODIUM 100 MG CAP PO SCH ×2 (08:02→20:19)
[2017-03-28] MEDS: PYRIDOXINE HCL 50 MG TAB PO SCH (08:03)
[2017-03-28] MEDS: CHOLECALCIFEROL (VIT D3) 1000 UNIT TAB PO SCH (08:03)
[2017-03-28] MEDS: LOSARTAN 50 MG TAB PO SCH (08:03)
--- NOTE | 2017-03-28 10:19 | HHI.PR ---
Subjective Remarks This is a pleasant 71 y/o male wh larissa admitted on 03/24/17 with status post fall while he was at a local restaurant initially treated non operatively with a sling and swath but subsequent x rays revealed further displacement and indeed a fracture, with diagnosis of Three point displaced fracture, Neck of the right Humerus, Status post Reverse Right Shoulder Arthroplasty with Internal fixation of Tuberosity fracture. 03/26/17 as we know he has CAD status post Aortic Valve replacement, CABG x 2, has a #21 [facility] Bioprosthesis, Obesity, Dm II, Hypertension, Hyperlipidemia, Rheumatic Fever. 03/28: Seen in his bedroom, no nausea, vomit or diarrhea. following renal electrolytes today. Objective Vital Signs Date Time Temp Pulse Resp B/P (MAP) Pulse Ox O2 Delivery O2 Flow Rate FiO2 03/28/17 07:55 98.4 104 18 116/53 (74) 94 03/28/17 07:45 16 03/28/17 00:11 96.7 77 18 120/50 (73) 95 03/27/17 20:25 97.2 73 18 105/49 (67) 94 03/27/17 16:45 16 03/27/17 16:00 96.0 66 18 99/57 (71) 96 03/27/17 12:11 16 03/27/17 12:00 96.4 68 18 99/46 (63) 93 I/O 03/27/17 03/27/17 03/27/17 03/28/17 03/28/17 03/28/17 07:00 15:00 23:00 07:00 15:00 23:00 Intake Total 1457 ml 480 ml 240 ml Output Total 325 ml 350 ml 200 ml Balance 1132 ml -350 ml 480 ml 40 ml Intake Oral 480 ml 480 ml 240 ml IV Total 977 ml Output Urine Total 325 ml 350 ml 200 ml # Voids 1 # Bowel Movements 0 0 Result Diagram: 03/27/17 0418 03/27/17 0418 Imaging Last Impressions Shoulder X-Ray 03/26/17 0000 Signed Impressions: Service Date/Time: Sunday, March 26, 2017 16:11 - CONCLUSION: 1. Complete right shoulder joint replacement. Getachew Perez MD Procedures with diagnosis of Three point displaced fracture, Neck of the right Humerus, Status post Reverse Right Shoulder Arthroplasty with Internal fixation of Tuberosity fracture. 03/26/17 Other Results Laboratory Tests Test 03/27/17 04:18 Hemoglobin 10.6 GM/DL Hematocrit 33.4 % Blood Urea Nitrogen 28 MG/DL Creatinine 1.77 MG/DL Random Glucose 136 MG/DL Calcium Level 7.7 MG/DL Sodium Level 135 MEQ/L Potassium Level 5.9 MEQ/L Chloride Level 105 MEQ/L Carbon Dioxide Level 24.2 MEQ/L Anion Gap 6 MEQ/L Estimat Glomerular Filtration Rate 38 ML/MIN Objective Remarks GENERAL: Obesity, no acute distress. SKIN: No rashes, ecchymoses or lesions. Cool and dry. HEAD: Atraumatic. Normocephalic. EYES: Pupils equal round and reactive. ENT: Nose without bleeding, purulent drainage or septal hematoma. NECK: Trachea midline. No JVD or lymphadenopathy. Supple, nontender, no meningeal signs. CARDIOVASCULAR: Regular rate and rhythm without murmurs, gallops, or rubs. RESPIRATORY: Clear to auscultation. Breath sounds equal bilaterally. GASTROINTESTINAL: Abdomen soft, non-tender, nondistended. MUSCULOSKELETAL: Right arm with sling in place. NEUROLOGICAL: Awake and alert. Cranial nerves II through XII intact. Medications and IVs Current Medications Medications (Trade) Dose Ordered Sig/Nicholas Route Start Time Stop Time Status Last Admin Sodium Chloride 1,000 ml @ 125 mls/hr Q8H IV 03/26/17 20:00 03/26/17 23:44 (Lovenox Inj) 40 mg Q24H SQ 03/27/17 17:00 03/27/17 15:46 (Morphine Inj) 4 mg Q3H PRN IV 03/26/17 19:45 03/27/17 23:36 (Sebec 5-325 Mg) 1 tab Q4H PRN PO 03/26/17 17:45 03/27/17 15:45 (Sebec 5-325 Mg) 2 tab Q4H PRN PO 03/26/17 17:45 03/28/17 06:45 (Phenergan) 25 mg Q4H PRN PO 03/26/17 17:45 (Zofran Inj) 4 mg Q6H PRN IVP 03/26/17 17:45 (Colace) 100 mg BID PO 03/27/17 21:00 03/28/17 08:02 (Milk Of Magnesia Liq) 30 ml DAILY PRN PO 03/26/17 17:45 (Narcan Inj) 0.4 mg UNSCH PRN IV PUSH 03/26/17 17:45 (Benadryl Inj) 25 mg Q6H PRN IV PUSH 03/26/17 17:45 (Ofirmev 1000 Mg/ 100 ml Inj) 1,000 mg Q12H IV 03/27/17 12:00 03/29/17 08:00 03/28/17 00:20 (NovoLIN R SUPPLEMENTAL SCALE) 1 ACHS SQ 03/26/17 21:00 (D50w (Vial) Inj) 50 ml UNSCH PRN IV PUSH 03/26/17 17:45 (Glucagon Inj) 1 mg UNSCH PRN OTHER 03/26/17 17:45 (Proair Hfa Inh) 2 puff Q4H PRN INH 03/26/17 17:45 (Lipitor) 40 mg HS PO 03/26/17 21:00 03/27/17 19:48 (Vitamin D3) 2,000 units DAILY PO 03/27/17 09:00 03/28/17 08:03 (Cymbalta Dr) 30 mg BID PO 03/26/17 21:00 03/28/17 08:02 (Lasix) 20 mg DAILY PO 03/27/17 09:00 03/28/17 08:02 (Cozaar) 50 mg DAILY PO 03/27/17 09:00 03/27/17 08:33 (Lopressor) 25 mg BID PO 03/26/17 21:00 03/28/17 08:02 (Protonix) 20 mg DAILY PO 03/27/17 09:00 03/28/17 08:02 (Vitamin B6) 100 mg DAILY PO 03/27/17 09:00 03/28/17 08:03 (Ambien) 10 mg HS PO 03/26/17 21:00 03/28/17 00:32 (Theragran) 1 tab DAILY PO 03/27/17 09:00 03/28/17 08:02 (Neurontin) 900 mg BID PO 03/27/17 21:00 03/28/17 08:02 (Flomax) 0.4 mg Q12HR PO 03/27/17 13:00 03/29/17 12:00 03/28/17 08:02 A/P Assessment and Plan 1. with diagnosis of Three point displaced fracture, Neck of the right Humerus, Status post Reverse Right Shoulder Arthroplasty with Internal fixation of Tuberosity fracture. 03/26/17. continue management by his primary Orthopedic tax services specialist 2. Hypertension controlled 3. Hyperlipidemia continue Home medicines. 4. Rheumatic Fever by history 5. CAD by history status post Aortic Valve replacement 6. Obesity strongly recommended Diet and exercise as outpatient 7. DM II continue sliding scale. controlled a this time. 8. Peripheral Neuropathy continue gabapentin 9. CKD III stable at baseline with Hyperkalemia giving Kayexalate and following. DVT prophylaxis with Lovenox GI with PPIs. clear for discharge by Hospitalist. Code Status Full Code Discussed Condition With Patient and nurse. Discharge Planning Okay to discharge from Medical standpoint. Ghulam Dietrich MD Mar 28, 2017 10:19
[2017-03-28 11:07] VITALS: BP 118/54; PULSE 88; RESP 18; TEMP 98.5; O2SAT 92
[2017-03-28] MEDS ORDERED: HYDR-3516 PO (12:28)
[2017-03-28] MEDS ORDERED: TRAM50TA PO (12:28)
[2017-03-28] MEDS ORDERED: ENOX40P SQ (12:28)
--- NOTE | 2017-03-28 12:33 | PD.ORT.PN ---
Subjective Post Op Day #: 2 Pain Scale: 5 Subjective Remarks doing OK Distance Walked BRP Objective Vitals Vital Signs Date Time Temp Pulse Resp B/P (MAP) Pulse Ox O2 Delivery O2 Flow Rate FiO2 03/28/17 07:55 98.4 104 18 116/53 (74) 94 03/28/17 07:45 16 03/28/17 00:11 96.7 77 18 120/50 (73) 95 03/27/17 20:25 97.2 73 18 105/49 (67) 94 03/27/17 16:45 16 03/27/17 16:00 96.0 66 18 99/57 (71) 96 I/O 03/27/17 03/27/17 03/27/17 03/28/17 03/28/17 03/28/17 07:00 15:00 23:00 07:00 15:00 23:00 Intake Total 1457 ml 480 ml 240 ml Output Total 325 ml 350 ml 200 ml Balance 1132 ml -350 ml 480 ml 40 ml Intake Oral 480 ml 480 ml 240 ml IV Total 977 ml Output Urine Total 325 ml 350 ml 200 ml # Voids 1 # Bowel Movements 0 0 Result Diagram: 03/27/17 0418 03/27/17 0418 Objective Remarks Sirring up in chair Fohley out, peeing OK per patient, sling and swathe adjusted. Moves right hand well Dressing dry. DC to SNF tomorrow with Rx for tramadol, HC/apap, and lovenox 40 mg daily To see me 04/01 for fu. Discussed plans with patient Assessment & Plan Ortho Post Op Day #: 2 Problem List: Assessment and Plan Dressings dry, no need to change Flomax 0.4 mg bid Try to DC catheter today, after flomax and we get him walking, discussed with nurse and PT Nurse will check 2 sat right hand Cory Manning MD Mar 28, 2017 12:33
[2017-03-28 13:04] LABS: HEMATOCRIT 28.1 % (39.0-51.0)
[2017-03-28 13:36] LABS: BICARBONATE 27.4 MEQ/L (21.0-32.0); POTASSIUM 4.4 MEQ/L (3.5-5.1)
[2017-03-28 16:00] VITALS: BP 127/55; PULSE 103; RESP 19; TEMP 97.2; O2SAT 92
[2017-03-28] MEDS: ENOXAPARIN SODIUM 40 MG/0.4 ML SYRINGE SQ SCH (16:25)
[2017-03-28] MEDS: MORPHINE SULFATE 2 MG/ML INJ IV PRN (18:26)
[2017-03-28] MEDS: ATORVASTATIN 40 MG TAB PO SCH (20:19)
[2017-03-28] MEDS: MAGNESIUM HYDROXIDE SUSP 30 ML CUP PO PRN (20:19)
[2017-03-28 20:35] VITALS: BP 144/61; PULSE 105; RESP 18; TEMP 96.9; O2SAT 94
[2017-03-29] MEDS: ACETAMINOPHEN 1000 MG/100 ML VIAL IV SCH (00:04)
[2017-03-29 00:05] VITALS: BP 149/63; PULSE 109; RESP 18; TEMP 97.1; O2SAT 96
[2017-03-29] MEDS: ACETAMINOPHEN/HYDROcodone 325 MG/5 MG TAB PO PRN ×3 (00:41→14:41)
[2017-03-29] MEDS: SODIUM CHLOR 0.9% 1000 ML INJ 1,000 ML IV SCH ×2 (01:47→12:00)
[2017-03-29 08:00] VITALS: BP 123/57; PULSE 103; RESP 18; TEMP 96.7; O2SAT 95
[2017-03-29] MEDS: INSULIN NovoLIN REGULAR SUPPLEMENTAL SCALE SQ SCH ×3 (08:00→17:00)
[2017-03-29] MEDS: CHOLECALCIFEROL (VIT D3) 1000 UNIT TAB PO SCH (09:57)
[2017-03-29] MEDS: GABAPENTIN 300 MG CAP PO SCH (09:57)
[2017-03-29] MEDS: PYRIDOXINE HCL 50 MG TAB PO SCH (09:57)
[2017-03-29] MEDS: DOCUSATE SODIUM 100 MG CAP PO SCH (09:58)
[2017-03-29] MEDS: TAMSULOSIN HCL 0.4 MG CAP PO SCH (09:58)
[2017-03-29] MEDS: FUROSEMIDE 20 MG TAB PO SCH (09:58)
[2017-03-29] MEDS: DULoxetine HCl DR 30 MG CAP PO SCH (09:58)
[2017-03-29] MEDS: PANTOPRAZOLE SOD 20 MG DELAYED RELEASE TAB PO SCH (09:58)
[2017-03-29] MEDS: LOSARTAN 50 MG TAB PO SCH (09:58)
[2017-03-29] MEDS: METOPROLOL TARTRATE 25 MG TAB PO SCH (09:59)
[2017-03-29] MEDS: MULTIVITAMIN TAB PO SCH (09:59)
[2017-03-29] MEDS: UMECLIDINIUM 62.5 MCG/VILANTEROL 25 MCG INHALER INH SCH (10:00)
[2017-03-29 12:00] VITALS: BP 112/58; PULSE 90; RESP 18; TEMP 98; O2SAT 91
[2017-03-29] MEDS ORDERED: BISACODYL 10 MG SUPP RECTAL ONE (13:30)
--- NOTE | 2017-03-29 14:18 | HHI.PR ---
Subjective Remarks This is a pleasant 71 y/o male wh larissa admitted on 03/24/17 with status post fall while he was at a local restaurant initially treated non operatively with a sling and swath but subsequent x rays revealed further displacement and indeed a fracture, with diagnosis of Three point displaced fracture, Neck of the right Humerus, Status post Reverse Right Shoulder Arthroplasty with Internal fixation of Tuberosity fracture. 03/26/17 as we know he has CAD status post Aortic Valve replacement, CABG x 2, has a #[address] [facility] Bioprosthesis, Obesity, Dm II, Hypertension, Hyperlipidemia, Rheumatic Fever. 03/28: Seen in his bedroom, no nausea, vomit or diarrhea. following renal electrolytes today. 03-29 to go to SNF TODAY AFTER HAS BM HAS NOT HAD BM YET DW RN AND PT Objective Vitals Vital Signs Date Time Temp Pulse Resp B/P (MAP) Pulse Ox O2 Delivery O2 Flow Rate FiO2 03/29/17 12:00 98.0 90 18 112/58 (76) 91 03/29/17 08:00 96.7 103 18 123/57 (79) 95 03/29/17 01:56 Nasal Cannula 2.00 03/29/17 00:05 97.1 109 18 149/63 (91) 96 03/28/17 20:35 96.9 105 18 144/61 (88) 94 03/28/17 18:31 18 03/28/17 17:22 16 03/28/17 16:00 97.2 103 19 127/55 (79) 92 I/O 03/28/17 03/28/17 03/28/17 03/29/17 03/29/17 03/29/17 07:00 15:00 23:00 07:00 15:00 23:00 Intake Total 240 ml 660 ml 480 ml 240 ml Output Total 200 ml Balance 40 ml 660 ml 480 ml 240 ml Intake Oral 240 ml 660 ml 480 ml 240 ml Output Urine Total 200 ml # Voids 5 2 4 # Bowel Movements 0 0 0 0 Result Diagram: 03/28/17 1245 03/28/17 1247 Other Results Laboratory Tests Test 03/26/17 16:52 03/27/17 04:18 03/28/17 12:45 03/28/17 12:47 Hemoglobin 10.2 GM/DL 10.6 GM/DL 9.2 GM/DL Hematocrit 31.2 % 33.4 % 28.1 % Blood Urea Nitrogen 28 MG/DL 31 MG/DL Creatinine 1.77 MG/DL 1.51 MG/DL Random Glucose 136 MG/DL 107 MG/DL Calcium Level 7.7 MG/DL 7.8 MG/DL Sodium Level 135 MEQ/L 136 MEQ/L Potassium Level 5.9 MEQ/L 4.4 MEQ/L Chloride Level 105 MEQ/L 103 MEQ/L Carbon Dioxide Level 24.2 MEQ/L 27.4 MEQ/L Anion Gap 6 MEQ/L 6 MEQ/L Estimat Glomerular Filtration Rate 38 ML/MIN 46 ML/MIN Imaging Last Impressions Shoulder X-Ray 03/26/17 0000 Signed Impressions: Service Date/Time: Sunday, March 26, 2017 16:11 - CONCLUSION: 1. Complete right shoulder joint replacement. Getachew Perez MD Objective Remarks GENERAL: Awake alert oriented talkative and cooperative complaining of some pain in the right shoulder SKIN: Warm and dry. HEAD: Atraumatic. Normocephalic. EYES: Pupils equal and round. No scleral icterus. No injection or drainage. Extraocular muscles intact ENT: No nasal bleeding or discharge. Mucous membranes pink and moist. Tongue is midline NECK: Trachea midline. No JVD. Supple CARDIOVASCULAR: Regular rate and rhythm. S1 and S2 no S3-S4 no heave or thrill or rub or gallop RESPIRATORY: No accessory muscle use. Clear to auscultation. Breath sounds equal bilaterally. GASTROINTESTINAL: Abdomen soft, non-tender, nondistended. Hepatic and splenic margins not palpable. Obese MUSCULOSKELETAL: Extremities without clubbing, cyanosis, or edema. No obvious deformities. Right upper extremity in sling NEUROLOGICAL: Awake and alert. No obvious cranial nerve deficits. Motor grossly within normal limits. 4 out of 5 muscle strength in the arms and legs except for right upper extremity due to surgery. Normal speech. PSYCHIATRIC: Appropriate mood and affect; insight and judgment normal. Procedures with diagnosis of Three point displaced fracture, Neck of the right Humerus, Status post Reverse Right Shoulder Arthroplasty with Internal fixation of Tuberosity fracture. 03/26/17 Medications and IVs Current Medications Lactated Ringer's 1,000 ml @ 30 mls/hr Q24H PRN IV SEE LABEL COMMENTS; Start 03/26/17 at 10:30; Stop 03/26/17 at 19:20; Status DC Sodium Chloride 500 ml @ 30 mls/hr [id number] PRN IV SEE LABEL COMMENTS; Start at 10:30; Stop 03/26/17 at 19:20; Status DC Metoprolol Tartrate (Lopressor) 25 mg BEATER OUT PRN PO SEE LABEL COMMENTS; Start 03/26/17 at 10:30; Stop 03/26/17 at 19:20; Status DC Povidone Iodine (Betadine 5% Antisepsis Kit) 1 applic BEATER OUT PRN EACH NARE SEE LABEL COMMENTS; Start 03/26/17 at 10:30; Stop 03/26/17 at 19:20; Status DC Chlorhexidine Gluconate (Chlorhexidine 2% Cloth) 3 pack BEATER OUT PRN TOPICAL SEE LABEL COMMENTS; Start 03/26/17 at 10:30; Stop 03/26/17 at 19:20; Status DC Insulin Human Regular (NovoLIN R INJ) See Protocol Table ... BEATER OUT PRN SQ SEE PROTOCOL TABLE; Start 03/26/17 at 10:30; Stop 03/26/17 at 19:20; Status DC Povidone Iodine (Betadine 7.5% Scrub) 1 applic ONCE TOPICAL ; Start 03/26/17 at 12:00; Stop 03/26/17 at 19:20; Status DC Cefazolin Sodium/ Dextrose 50 ml @ 100 mls/hr BEATER OUT IV Last administered on 03/26/17 13:25; Start 03/26/17 at 12:00; Stop 03/26/17 at 19:20; Status DC Vancomycin HCl 1250 mg/Sodium Chloride 262.5 ml @ 262.5 mls/ hr BEATER OUT IV Last administered on 03/26/17 13:25; Start 03/26/17 at 12:00; Stop 03/26/17 at 19:20; Status DC Gentamicin Sulfate (Gentamicin Inj) 160 mg STK-MED ONCE .ROUTE Last administered on 03/26/17 14:02; Start 03/26/17 at 12:04; Stop 03/26/17 at 12 :05; Status DC Tobramycin Sulfate (Nebcin Inj) 1,200 mg STK-MED ONCE .ROUTE Last administered on 03/26/17 14:02; Start 03/26/17 at 12:09; Stop 03/26/17 at 12:10; Status DC Cefazolin Sodium (Ancef Inj) 1,000 mg ONCE ONCE IV Last administered on 17:03; Start 03/26/17 at 17:05; Stop 03/26/17 at 17:06; Status DC Sodium Chloride 1,000 ml @ 125 mls/hr Q8H IV Last administered on 03/26/17 23:44; Start 03/26/17 at 20:00 Cefazolin Sodium/ Dextrose 50 ml @ 100 mls/hr Q8H IV Last administered on 04:16; Start 03/26/17 at 21:00; Stop 03/27/17 at 05:29; Status DC Vancomycin HCl 1000 mg/Sodium Chloride 250 ml @ 250 mls/hr Q12H IV Last administered on 03/26/17 23:43; Start 03/27/17 at 01:00; Stop 03/27/17 at 01 :59; Status DC Miscellaneous Information (Post-op Orders (for Pharmacy)) STAT ONCE XX ; Start 03/26/17 at 17:45; Stop 03/26/17 at 19:36; Status DC Enoxaparin Sodium (Lovenox Inj) 40 mg Q24H SQ Last administered on 03/28/17 16:25; Start 03/27/17 at 17:00 Morphine Sulfate (Morphine Inj) 4 mg Q3H PRN IV PAIN >7 WHEN OFF MONEY COUNTER Last administered on 03/28/17 18:26; Start 03/26/17 at 19:45 Acetaminophen/ Hydrocodone Bitart ([place] 5-325 Mg) 1 tab Q4H PRN PO PAIN LESS THAN 5 ON SCALE Last administered on 03/29/17 09:58; Start 03/26/17 at 17:45 Acetaminophen/ Hydrocodone Bitart ([place] 5-325 Mg) 2 tab Q4H PRN PO PAIN SCALE 5 TO 10 Last administered on 03/28/17 06:45; Start 03/26/17 at 17:45 Ketorolac Tromethamine (Toradol Inj) 15 mg Q8H IVP Last administered on 08:32; Start 03/27/17 at 10:00; Stop 03/27/17 at 11:55; Status DC Promethazine HCl (Phenergan) 25 mg Q4H PRN PO SEVERE NAUSEA OR VOMITING; Start 03/26/17 at 17:45 Ondansetron HCl (Zofran Inj) 4 mg Q6H PRN IVP MILD NAUSEA OR VOMITING; Start 03/26/17 at 17:45 Docusate Sodium (Colace) 100 mg BID PO Last administered on 03/29/17 09:58; Start 03/27/17 at 21:00 Zolpidem Tartrate (Ambien) 5 mg HS PRN PO SLEEP; Start 03/26/17 at 17:45; Status UNV Magnesium Hydroxide (Milk Of Magnesia Liq) 30 ml DAILY PRN PO CONSTIPATION Last administered on 03/28/17 20:19; Start 03/26/17 at 17:45 Naloxone HCl (Narcan Inj) 0.4 mg UNSCH PRN IV PUSH RESPIRATORY RATE LESS THAN 10; Start 03/26/17 at 17:45 Diphenhydramine HCl (Benadryl Inj) 25 mg Q6H PRN IV PUSH ITCHING; Start at 17:45 Acetaminophen (Ofirmev 1000 Mg/ 100 ml Inj) 1,000 mg Q12H IV Last administered on 03/28/17 00:20; Start 03/27/17 at 12:00; Stop 03/29/17 at 08:00; Status DC Insulin Human Regular (NovoLIN R SUPPLEMENTAL SCALE) 1 ACHS SQ ; Start at 21:00 Dextrose (D50w (Vial) Inj) 50 ml UNSCH PRN IV PUSH HYPOGLYCEMIA-SEE COMMENTS; Start 03/26/17 at 17:45 Glucagon (Glucagon Inj) 1 mg UNSCH PRN OTHER HYPOGLYCEMIA-SEE COMMENTS; Start 03/26/17 at 17:45 Albuterol Sulfate (Proair Hfa Inh) 2 puff Q4H PRN INH SHORTNESS OF BREATH; Start 03/26/17 at 17:45 Atorvastatin Calcium (Lipitor) 40 mg HS PO Last administered on 03/28/17 20: 19; Start 03/26/17 at 21:00 Cholecalciferol (Vitamin D3) 2,000 units DAILY PO Last administered on 09:57; Start 03/27/17 at 09:00 Duloxetine HCl (Cymbalta Dr) 30 mg BID PO Last administered on 03/29/17 09:58 ; Start 03/26/17 at 21:00 Furosemide (Lasix) 20 mg DAILY PO Last administered on 03/29/17 09:58; Start 03/27/17 at 09:00 Gabapentin (Neurontin) 900 mg TID PO Last administered on 03/27/17 08:32; Start 03/26/17 at 18:00; Stop 03/27/17 at 11:52; Status DC Losartan Potassium (Cozaar) 50 mg DAILY PO Last administered on 03/29/17 09: 58; Start 03/27/17 at 09:00 Metoprolol Tartrate (Lopressor) 25 mg BID PO Last administered on 03/29/17 09 :59; Start 03/26/17 at 21:00 Pantoprazole Sodium (Protonix) 20 mg DAILY PO Last administered on 03/29/17 09:58; Start 03/27/17 at 09:00 Pyridoxine HCl (Vitamin B6) 100 mg DAILY PO Last administered on 03/29/17 09: 57; Start 03/27/17 at 09:00 Zolpidem Tartrate (Ambien) 10 mg HS PO Last administered on 03/28/17 20:49; Start 03/26/17 at 21:00 Multivitamins (Theragran) 1 tab DAILY PO Last administered on 03/29/17 09:59 ; Start 03/27/17 at 09:00 Acetaminophen 100 ml @ As Directed STK-MED ONCE IV Last administered on 18:22; Start 03/26/17 at 18:22; Stop 03/26/17 at 18:23; Status DC Morphine Sulfate (*morphine INJ PERIprocedure ONLY) 8 mg STK-MED ONCE .ROUTE Last administered on 03/26/17 18:22; Start 03/26/17 at 18:22; Stop 03/26/17 at 18:23; Status DC Ketorolac Tromethamine (Toradol Inj) 30 mg STK-MED ONCE .ROUTE Last administered on 03/26/17 18:30; Start 03/26/17 at 18:30; Stop 03/26/17 at 18 :31; Status DC Miscellaneous Information ALL NURSING DEPARTME... UNSCH PRN .XX SEE LABEL COMMENTS; Start 12/15/17 at 20:30; Stop 03/27/17 at 20:29; Status DC Sodium Polystyrene Sulfonate (Kayexalate Liq) 30 gm ONCE ONCE PO Last administered on 03/27/17 09:49; Start 03/27/17 at 09:00; Stop 03/27/17 at 09 :01; Status DC Gabapentin (Neurontin) 900 mg BID PO Last administered on 03/29/17 09:57; Start 03/27/17 at 21:00 Tamsulosin HCl (Flomax) 0.4 mg Q12HR PO Last administered on 03/29/17 09:58; Start 03/27/17 at 13:00; Stop 03/29/17 at 12:00; Status DC Bisacodyl (Dulcolax Supp) 10 mg NOW ONCE RECTAL ; Start 03/29/17 at 13:30; Stop 03/29/17 at 13:31; Status DC A/P Assessment and Plan Assessment and Plan 1. with diagnosis of Three point displaced fracture, Neck of the right Humerus, Status post Reverse Right Shoulder Arthroplasty with Internal fixation of Tuberosity fracture. 03/26/17. continue management by his primary Orthopedic coverage specialist rn 2. Hypertension controlled 3. Hyperlipidemia continue Home medicines. 4. Rheumatic Fever by history 5. CAD by history status post Aortic Valve replacement 6. Obesity strongly recommended Diet and exercise as outpatient 7. DM II continue sliding scale. controlled a this time. 8. Peripheral Neuropathy continue gabapentin 9. CKD III stable at baseline with Hyperkalemia giving Kayexalate and following. Renal functions are improved DVT prophylaxis with Lovenox GI with PPIs. clear for discharge by Hospitalist. Code Status Full Code Discharge Planning To SNF today once cleared by surgery Castillo Willoughby DO Mar 29, 2017 14:18
[2017-03-29] MEDS ORDERED: SENN1TAB PO (14:22)
[2017-03-29] MEDS: MAGNESIUM HYDROXIDE SUSP 30 ML CUP PO PRN (14:40)
[2017-03-29] MEDS ORDERED: IPRASOL INH (15:00)
[2017-03-29] MEDS ORDERED: RESP: ALBUTEROL 2.5 MG/IPRATROPIUM 0.5 MG NEB (SCH) NEB STA (15:01)
[2017-03-29] MEDS ORDERED: RESP: ALBUTEROL 2.5 MG/IPRATROPIUM 0.5 MG NEB (PRN) NEB (15:15)
[2017-03-29 15:46] VITALS: O2SAT 91
[2017-03-29 16:00] VITALS: BP 110/57; PULSE 86; RESP 18; TEMP 97.5; O2SAT 92
[2017-03-29] MEDS: ENOXAPARIN SODIUM 40 MG/0.4 ML SYRINGE SQ SCH (18:15)
[2017-03-31] MEDS ORDERED: GABA300C5 PO (11:02)
[2017-03-31] MEDS ORDERED: DULC10SU3 RECTAL (11:35)
[2017-03-31] MEDS ORDERED: MILKSUS PO (11:35)
== END 2017-03-29 21:05 | DRG 483 ==
LOC: HSDC 09:43 → EDSTATUS 13:00 → N06A 17:44 → HSDC 17:44
PROVIDERS: ADMIT Orthopaedic Surgery; ATTEND Orthopaedic Surgery
PROC: 0PSC04Z Reposition Right Humeral Head with Internal Fixation Device, Open Approach (ICD-10-PCS; 2017-03-26)
PROC: 0PSF04Z Reposition Right Humeral Shaft with Internal Fixation Device, Open Approach (ICD-10-PCS; 2017-03-26)
PROC: 3E0T3BZ Introduction of Anesthetic Agent into Peripheral Nerves and Plexi, Percutaneous Approach (ICD-10-PCS; 2017-03-26)
PROC: 0RRJ00Z Replacement of Right Shoulder Joint with Reverse Ball and Socket Synthetic Substitute, Open Approach (ICD-10-PCS; principal; 2017-03-26 12:56)
DX: S42.251A Displaced fracture of greater tuberosity of right humerus, initial encounter for closed fracture (principal); E11.22 Type 2 diabetes mellitus with diabetic chronic kidney disease; E11.42 Type 2 diabetes mellitus with diabetic polyneuropathy; N18.3 Chronic kidney disease, stage 3 (moderate); S42.261A Displaced fracture of lesser tuberosity of right humerus, initial encounter for closed fracture; S42.301A Unspecified fracture of shaft of humerus, right arm, initial encounter for closed fracture; I12.9 Hypertensive chronic kidney disease with stage 1 through stage 4 chronic kidney disease, or unspecified chronic kidney disease; E66.9 Obesity, unspecified; I25.10 Atherosclerotic heart disease of native coronary artery without angina pectoris; E78.5 Hyperlipidemia, unspecified; E87.5 Hyperkalemia; W19.XXXA Unspecified fall, initial encounter; Y93.9 Activity, unspecified; Y92.511 Restaurant or cafe as the place of occurrence of the external cause; Z68.39 Body mass index [BMI] 39.0-39.9, adult; Z87.891 Personal history of nicotine dependence; Z95.1 Presence of aortocoronary bypass graft; Z95.2 Presence of prosthetic heart valve
CPT/HCPCS: 73020; 73030; 76000; 80048; 82948; 85014; 85018; 86850; 86900; 86901; 94150; 94664; J0131; J0690; J1580; J1650; J1885; J2270; J3370; J7030; J7050